=== PATIENT | male | born 1940 | race Caucasian/White ===

== ENCOUNTER 2017-06-29 21:33 | Inpatient (IN) | payer MEDICARE ==
[2017-06-29 22:25] LABS: #Basophils 0.1 thou/uL (0.0-0.2); #Eosinphils 0.2 thou/uL (0.0-0.7); #Monocytes 0.8 thou/uL (0.11-0.59); #Neutrophils 5.5 thou/uL (1.40-6.50); %Basophils 0.8 % (0.0-1.0); %Eosinophils 2.6 % (0.0-10.0); %Lymphocytes 23.4 % (21.0-51.0); Hematocrit 43.8 % (42.0-52.0); Mean Platelet Volume 7.4 fL (7.4-10.4); Red Blood Cell (RBC) Count 4.55 mill/uL (4.70-6.10); White Blood Cell (WBC) Count 8.5 thou/uL (4.8-10.8)
[2017-06-29 22:32] LABS: Prothrombin Time 28.5 SEC (12.0-14.7)
[2017-06-29 22:45] LABS: ALT (SGPT) 47 U/L (8-55); AST (SGOT) 74 U/L (5-34); Alkaline Phosphatase 46 U/L (40-150); Anion Gap 12 mmol/L (10-20); BUN (Urea Nitrogen) 31 mg/dL (8.4-25.7); Bilirubin, Total 0.6 mg/dL (0.2-1.2); Calc. Creatinine Clearance 0 mL/min (70-130); Calcium 9.9 mg/dL (7.8-10.44); Carbon Dioxide 30 mmol/L (23-31); Chloride 104 mmol/L (98-107); Estimated GFR-MDRD 42; Globulin 3.3 g/dL (2.4-3.5); Protein, Total 7.5 g/dL (5.8-8.1)
[2017-06-29 22:52] LABS: Troponin I Less than 0.010 ng/mL (< 0.028)
--- NOTE | 2017-06-30 00:04 | RAD ---
TWO AP VIEWS CHEST: 06/29/17 HISTORY: Chest pain. Patient has been having back and chest pain for five days. Two upright views portable of chest is obtained. Comparison made to previous exam on 04/17/04. AP view chest demonstrates an intracardiac pacing device. The lungs are well aerated. No evidence of active intrathoracic disease seen. No evidence of effusions, pneumonia or pneumothorax seen. IMPRESSION: Unremarkable AP view chest. POS: [facility]
[2017-06-30] MEDS ORDERED: Morphine 4 MG/ML Carpuject ONE ×2 (00:35→02:37)
[2017-06-30 00:54] LABS: Troponin I Less than 0.010 ng/mL (< 0.028)
[2017-06-30 01:33] LABS: CK (CPK) 128 U/L (30-200)
[2017-06-30 01:46] LABS: Lipase 5275 U/L (8-78)
[2017-06-30] MEDS ORDERED: Phytonadione 10 MG/ML AMP SLOW IVP SCH (04:45)
[2017-06-30] MEDS ORDERED: HUMAN PROTHROMBIN COMPLX IV SCH (04:45)
[2017-06-30] MEDS ORDERED: ADMIXTURE FEE IV SCH (04:45)
[2017-06-30] MEDS ORDERED: Acetaminophen 325 MG TAB PO PRN (06:14)
[2017-06-30] MEDS ORDERED: Ondansetron ODT 4 MG TAB SL PRN (06:14)
[2017-06-30] MEDS ORDERED: Ondansetron HCl/PF 4 MG/2 ML Vial IVP PRN (06:14)
--- NOTE | 2017-06-30 08:15 | CT ---
PRELIMINARY REPORT/[facility]/EMERGENCY AFTER HOURS PROCEDURE: EXAM: CT Angiography Chest With Intravenous Contrast CLINICAL HISTORY: 77 years old, male; Pain; Chest pain; Abdominal pain; Epigastric; Prior surgery; Patient HX: Pt with 1 hr of left sided, nonradiating chest pressure and pain that began while watching tv. HX of dm typ e 2, a-fib on coumadin and therapeutic at 3 and mitral regurg. ; Additional info: only 60 ml of iv contrast used, due to low gfr TECHNIQUE: Axial computed tomographic angiography images of the chest with intravenous contrast using pulmonary embolism protocol. Coronal and sagittal reformatted images were created and reviewed. CONTRAST: 60 mL of ISOVUE 370 administered intravenously. COMPARISON: No relevant prior studies available. FINDINGS: Pulmonary arteries: Suboptimal are adequate contrast opacification of the pulmonary arteries. No tegan dence of PE. Aorta: Aorta is normal. No aneurysm or acute aortic syndrome. Lungs: Unremarkable. No mass. No consolidation. Pleural space: Unremarkable. No significant effusion. No pneumothorax. Heart: Unremarkable. No cardiomegaly. No significant pericardial effusion. No evidence of RV dysfunc tion. Bones/joints: No acute fracture. No dislocation. Soft tissues: Unremarkable. Lymph nodes: Unremarkable. No enlarged lymph nodes. IMPRESSION: Aorta is normal. No aneurysm or acute aortic syndrome. EXAM: CT Angiography Abdomen With Intravenous Contrast EXAM DATE/TIME: Exam ordered 06/30/2017 1:41 AM CLINICAL HISTORY: 77 years old, male; Pain; Chest pain; Abdominal pain; Epigastric; Prior surgery; Patient HX: Pt with 1 hr of left sided, nonradiating chest pressure and pain that began while watching tv. HX of dm typ e 2, a-fib on coumadin and therapeutic at 3 and mitral regurg. ; Additional info: only 60 ml of iv cont rast used, due to low gfr TECHNIQUE: Axial computed tomographic angiography images of the abdomen with intravenous contrast. Coronal and sagittal reformatted images were created and reviewed. CONTRAST: 60 mL of ISOVUE 370 administered intravenously. COMPARISON: No relevant prior studies available. FINDINGS: Lower thorax: No acute findings. Aorta: No acute findings. No abdominal aortic aneurysm. No dissection. Celiac trunk and mesenteric arteries: No acute findings. No occlusion or significant stenosis. Renal arteries: No acute findings. No occlusion or significant stenosis. Liver: Unremarkable. No mass. Gallbladder and bile ducts: No biliary ductal dilatation or choledocholithiasis. Gallbladder is dist ended. No evidence of cholelithiasis. Mild pericholecystic fluid. No gallbladder wall thickening or pericholecystic inflammation. Pancreas: Annular pancreas. Diffuse inflammation of the head, neck, and proximal body of the pancrea s with small amount of surrounding fluid, consistent with acute pancreatitis. No ductal dilation. Spleen: Unremarkable. No splenomegaly. Adrenals: Unremarkable. No mass. Kidneys and ureters: Small incidental left renal cyst. No hydronephrosis. Stomach and bowel: No bowel thickening or intestinal obstruction. Appendix: Visualized portion of the appendix is normal. Intraperitoneal space: Unremarkable. No significant fluid collection. No free air. Bones/joints: No acute fracture. No dislocation. Soft tissues: Unremarkable. No mass. Lymph nodes: Unremarkable. No enlarged lymph nodes. IMPRESSION: 1. Annular pancreas. Acute pancreatitis. 2. Gallbladder is distended and there is mild pericholecystic fluid which can be findings of acute c holecystitis; however, there is no wall thickening or pericholecystic inflammation which are more co nvincing findings of cholecystitis. Presence of pericholecystic fluid may be related to pancreatitis . Thank you for allowing us to participate in the care of your patient. Dictated and Authenticated by: Dakota Desai MD 06/30/2017 1:59 AM Central Time ([place] \T\ [place]) FINAL REPORT CT ANGIOGRAM OF THE CHEST WITH IV CONTRAST AND 3D POSTPROCESSING CT ANGIOGRAM OF THE ABDOMEN WITH IV CONTRAST AND 3D POSTPROCESSING: Date: 06/30/17 FINDINGS/IMPRESSION: I agree with the preliminary report given by Dr. Dakota Desai of [facility]. POS: [facility]
--- NOTE | 2017-06-30 08:22 | ULT ---
PRELIMINARY REPORT/[facility]/EMERGENCY AFTER HOURS PROCEDURE: EXAM: US Abdomen Limited, Right Upper Quadrant EXAM DATE/TIME: Exam ordered 06/30/2017 2:49 AM CLINICAL HISTORY: 77 years old, male; Pain and signs and symptoms; Nausea; Abdominal pain; Epigastric TECHNIQUE: Real-time ultrasound of the right upper quadrant with image documentation. COMPARISON: No relevant prior studies available. FINDINGS: Liver: No intrahepatic biliary ductal dilatation. Gallbladder: Gallbladder is distended. Diffuse gallbladder wall thickening. Gallbladder wall edema. Pericholecystic fluid. Sonographic Chilel's sign unreliable due to patient medication. No perceptibl e cholelithiasis. Common bile duct: Common bile duct measures up to 9 mm in caliber which can be normal in a patient t his age; however, mild biliary ductal dilatation not excluded. No perceptible choledocholithiasis. Pancreas: Unremarkable as visualized. Right kidney: Unremarkable. No stones. No solid mass. No hydronephrosis. IMPRESSION: 1. Distended gallbladder with diffuse gallbladder wall thickening, gallbladder wall edema, perichole cystic fluid, consistent with acute cholecystitis. 2. Common bile duct measures up to 9 mm in caliber which can be normal in a patient this age; howeve r, mild biliary ductal dilatation not excluded. If there is clinical concern for distal CBD obstruct ion, recommend CT abdomen/pelvis with contrast. Thank you for allowing us to participate in the care of your patient. Dictated and Authenticated by: Dakota Desai MD 06/30/2017 3:27 AM Central Time ([place] \T\ [place]) FINAL REPORT GALLBLADDER ULTRASOUND: Date: 06/30/17 FINDINGS/IMPRESSION: Images of the gallbladder show evidence of gallbladder wall thickening and pericholecystic edema. I am in agreement with the preliminary report issued by Krista. POS: [facility]
[2017-06-30] MEDS ORDERED: Dextrose 50% Abboject 50 ML SYRINGE IVP PRN (09:28)
[2017-06-30] MEDS ORDERED: Dextrose 5% in Water 1,000 ML IV PRN (09:28)
[2017-06-30] MEDS ORDERED: Digoxin 0.25 MG TAB PO SCH (09:30)
[2017-06-30] MEDS ORDERED: Morphine 4 MG/ML Carpuject IVP PRN (10:07)
[2017-06-30] MEDS ORDERED: Acetaminophen 1,000 MG in Premix Bag 1 BAG IVPB PRN (10:08)
[2017-06-30] MEDS: Sodium Chloride 0.9% 1,000 ML IV SCH ×2 (10:24→18:08)
--- NOTE | 2017-06-30 10:29 | HP ---
HISTORY OF PRESENT ILLNESS: This is a 77-year-old male who presents with a history of severe upper abdominal pain for the last several hours. Actually he started having some vague upper abdominal pa in a few days ago, loss of appetite became more severe, 8/10 sharp pain across his upper abdomen la st night, extended up into his low chest. He was seen in the emergency department where an aortic d issection protocol CT revealed inflammatory changes to the gallbladder. He then has had now ultraso und showing pericholecystic fluid and thickened gallbladder wall. He has also been found to have pa ncreatitis with pericholecystic fluid. There are no gallstones. The patient denies previous known history of gallstones, jaundice, pancreatitis. He has 1-2 glasses of red wine a week. He does not drink daily. PAST MEDICAL HISTORY: Includes chronic atrial fibrillation on digoxin and Coumadin, hypertension, c oronary artery disease, diabetes mellitus type 2, dyslipidemia. MEDICINES TAKEN DAILY: Digoxin, vitamins, metoprolol, statin, Actos, Januvia, Coumadin. ALLERGIES TO MEDICINES: No known drug allergies. SOCIAL HISTORY: Again, 1-2 alcoholic drinks a week, not daily. No other drugs. No smoking. REVIEW OF SYSTEMS: Otherwise, negative. PHYSICAL EXAMINATION: VITAL SIGNS: Blood pressure 134/55, pulse 84, respirations 14. He is afebrile. HEENT: Sclerae are anicteric. Oropharynx clear. NECK: No lymphadenopathy. CHEST: Clear. HEART: Regular rate, irregular rhythm. ABDOMEN: His abdomen is soft, tender across the upper abdomen with no guarding or rebound. No abdo ashwin or inguinal hernias. LABORATORY AND X-RAY FINDINGS: White blood cell count is 8, hemoglobin is 14, INR last night 2.6. Sodium 141, potassium 4.5, creatinine 1.61, bilirubin normal at 0.6, AST slightly elevated at 74, li pase elevated at 5275, alkaline phos is normal. CT scan of the abdomen, and pelvis dissection nahid col reveals acute pancreatitis. Ultrasound shows pericholecystic fluid and thickened gallbladder wa ll. ASSESSMENT: Definite pancreatitis, unsure of etiology given lack of significant alcohol intake and no stones see on ultrasound. Question whether just stones are not seen. I think that the inflammat ory changes to the gallbladder and the pericholecystic fluid are related to the pancreatitis, not fr om an acute cholecystitis. Treat nonoperatively for now, IV fluid resuscitation, let his pancreatit is improve then we will decide whether to perform cholecystectomy. We will continue metoprolol and digoxin, but hold Coumadin for now.
[2017-06-30 11:22] VITALS: BMI 20.6
--- NOTE | 2017-06-30 11:27 | HP ---
REASON FOR ADMISSION: Chest pain. HISTORY OF PRESENT ILLNESS: This is a pleasant elderly gentleman with a history of mitral valve ins ufficiency and pacemaker implantation in the past, presents after he was watching a game on TV, he b tremayne having retrosternal chest pressure with no associated nausea, vomiting or diaphoresis. Shortly after that, began having right upper quadrant pain that went all across the stomach. For this reas on, he presented to the hospital where TN was ruled out with serial cardiac enzymes; however, he was found to have elevated lipase. Therefore, admitted to the hospital for further evaluation and thanh tment. He denies any history of coronary artery disease. The patient is very active and appears to be hemo dynamically stable, in no acute distress. PAST MEDICAL HISTORY: 1. He has mitral valve insufficiency. 2. History of atrial fibrillation. 3. History of hypertension. 4. Diabetes. 5. Hyperlipidemia. ALLERGIES: None. MEDICATIONS: 1. Zetia 10 mg every day. 2. Atorvastatin 40 mg every day. 3. Metoprolol ER 50 mg every day. 4. Digoxin 250 mcg every day. 5. Coumadin 5 mg every day. 6. Fenofibrate 135 mg every day. 7. Nitro 0.4 sublingual p.r.n. chest pain. 8. Xyzal 5 mg every day. 9. Fish oil every day. 10. Saw palmetto every day. 11. Magnesium 250 mg every day. 12. Nasonex p.r.n. 13. Januvia 100 mg every day. 14. Actos 15 mg every day. SOCIAL HISTORY: There is no tobacco or alcohol use. FAMILY HISTORY: Noncontributory. REVIEW OF SYSTEMS: General: Admits to no weight gain, weight loss, weakness, fatigue, fever or chi lls. HEENT: No diplopia, amaurosis fugax, tinnitus, sore throat or hoarseness. Cardiovascular: See history of present illness. Pulmonary: No PE, cough, or hemoptysis. Gastrointestinal: See history of present illness. Genitourinary: No dysuria, nocturia, oliguria o r polyuria. Endocrine: No polyphagia, polydipsia or heat or cold intolerance. Musculoskeletal: A dmits to arthralgias in the past. No lupus or myopathy. Neurologic: No history of TIA or seizure. All systems are negative. PHYSICAL EXAMINATION: GENERAL: Pleasant gentleman who appears to be in no acute distress. His family is at bedside. VITAL SIGNS: His blood pressure is 135/56, pulse 70, respirations 20, he is afebrile. NECK: Supple with no increased JVP or carotid bruit. Carotid had good upstroke, no thyromegaly. COR: Regular rate and rhythm. No murmur, S3. CHEST: Symmetrical. Clear to auscultation and percussion. EXTREMITIES: No edema or cyanosis. Palpable pedal pulses. SKIN: There is no evidence of ulcers, lesion, or rash. NEUROLOGIC: He is awake, alert, and oriented to person, place, and time. LABORATORY DATA AND IMAGING: Showed white blood cells of 8.5. His H\T\H is 14.3 and 43.8. His martha telet count is 170. His D-dimer was less than 0.27. His INR was 2.6. His lipase was 5275. His BU N was 31. His creatinine was 1.61. His gallbladder ultrasound is pending at time of dictation; how ever, there was some concern for some cholecystitis. ASSESSMENT: 1. Noncardiac chest pain. 2. History of valvular insufficiency. 3. History of atrial fibrillation. 4. History of pacemaker implantation. 5. Hypertension. 6. Hyperlipidemia. 7. Acute pancreatitis and acute cholecystitis. PLAN: 1. We will start IV fluids and normal saline at 100 mL an hour. 2. We will only give digoxin, metoprolol. 3. We will check a.c. and at bedtime blood sugars and use low dose regular sliding insulin per prot ocol. 4. We will check a PT/INR in the morning. 5. We will consult Dr. Delgado for cardiac clearance for his gallbladder removal. Kentrell Vogel PA-C dictating for Dr. Jd Arroyo.
[2017-06-30] MEDS ORDERED: ISOVUE-370 76%-LOCM 1 ML ONE (13:24)
--- NOTE | 2017-06-30 18:35 | CON ---
DATE OF CONSULTATION: 06/30/2017 REASON FOR CONSULTATION: Preop clearance. HISTORY OF PRESENT ILLNESS: Mr. Mitchell is a very pleasant 77-year-old gentleman with a history of atrial fibrillation in addition to flbhrycp-[id number]-cfddpd mitral regurgitation. He recently presented with gallbladder pancreatitis. He denies chest pain or pressure. His peak lipase was 50-75 mL. PAST MEDICAL HISTORY: As above including diabetes mellitus; hypertension; sick sinus syndrome; stat us post pacemaker placement; chronic atrial fibrillation, on Coumadin therapy. ALLERGIES: None. HOME MEDICATIONS: Include Xyzal, atorvastatin, Zetia, metformin, pioglitazone, magnesium, Trilipix , Januvia, digoxin, and Toprol. REVIEW OF SYSTEMS: A 10-point review of systems is reviewed and as above, otherwise negative. PHYSICAL EXAMINATION: GENERAL: Patient is a pleasant male who is in no acute distress. The patient appears his stated ag e. VITAL SIGNS: Blood pressure 114/67, pulse 69, temperature 98.5. NEUROLOGIC: The patient is alert and oriented times 3 with no focal neurologic deficits. HEENT: Sclerae without icterus. Mouth has moist mucous membranes with normal pallor. NECK: No JVD. Carotid upstroke brisk. No bruits bilaterally. LUNGS: Clear to auscultation with unlabored respirations. BACK: No scoliosis or kyphosis. CARDIAC: Regular rate and rhythm with normal S1 and S2. No S3 or S4 noted. No significant rubs, murmurs, thrills, or gallops noted throughout the precordium. PMI is not displ aced. There is no parasternal heave. ABDOMEN: Soft, nontender, nondistended. No peritoneal signs present. No hepatosplenomegaly. No abnormal striae. EXTREMITIES: 2+ femoral and 2+ dorsalis pedis pulses. No cyanosis, clubbing, or edema. SKIN: No gross abnormalities. PERTINENT LABS: As above, including a hemoglobin of 14.3, creatinine 1.61. IMPRESSION: 1. Preop clearance. 2. Tenyrwnd-yn-pxpqff mitral regurgitation. 3. Atrial fibrillation. RECOMMENDATIONS: Mr. Mitchell has no current symptoms suggesting angina. Given his current diagnos is of gallstone pancreatitis with a markedly elevated lipase and a dilated common bile duct, we woul d proceed with surgery. Last echo dated 07/21/2016 with LVEF 50%-55% and [id number] MRKavita Rashid jasso, I have no further recommendations.
[2017-07-01] MEDS: Sodium Chloride 0.9% 1,000 ML IV SCH ×4 (02:22→23:44)
[2017-07-01 05:20] LABS: #Lymphocytes 1.4 thou/uL (1.20-3.40); #Neutrophils 11.4 thou/uL (1.40-6.50); %Basophils 0.1 % (0.0-1.0); %Eosinophils 0.3 % (0.0-10.0); %Lymphocytes 10.4 % (21.0-51.0); %Monocytes 7.2 % (0.0-10.0); Hematocrit 42.5 % (42.0-52.0); Mean Platelet Volume 7.9 fL (7.4-10.4); Red Blood Cell (RBC) Count 4.25 mill/uL (4.70-6.10); White Blood Cell (WBC) Count 13.9 thou/uL (4.8-10.8)
[2017-07-01 05:34] LABS: Prothrombin Time 16.8 SEC (12.0-14.7)
[2017-07-01 05:50] LABS: ALT (SGPT) 100 U/L (8-55); AST (SGOT) 81 U/L (5-34); Alkaline Phosphatase 45 U/L (40-150); Anion Gap 12 mmol/L (10-20); BUN (Urea Nitrogen) 25 mg/dL (8.4-25.7); Bilirubin, Total 1.5 mg/dL (0.2-1.2); Calc. Creatinine Clearance 52 mL/min (70-130); Calcium 9.3 mg/dL (7.8-10.44); Carbon Dioxide 23 mmol/L (23-31); Chloride 107 mmol/L (98-107); Estimated GFR-MDRD 55; Globulin 3.2 g/dL (2.4-3.5); Lipase 458 U/L (8-78); Protein, Total 7.1 g/dL (5.8-8.1)
[2017-07-01] MEDS: Digoxin 0.25 MG TAB PO SCH (08:02)
--- NOTE | 2017-07-01 08:56 | PRG ---
DATE OF SERVICE: 07/01/2017 SUBJECTIVE: Mr. Mitchell has continued to complain of abdominal discomfort. His lipase is markedly improved on 06/29/2017. OBJECTIVE: VITAL SIGNS: Blood pressure 109/60, pulse 77, temperature 98.4. LUNGS: Clear to auscultation. CARDIAC: Regular rate and rhythm. ABDOMEN: Positive tenderness to palpation. EXTREMITIES: No edema. IMPRESSION: 1. Atrial fibrillation. 2. Moderate to severe mitral regurgitation. 3. Gallstone pancreatitis. RECOMMENDATIONS: Mr. Mitchell's cardiovascular status is stable. The patient has no current sympto ms suggesting angina. I would proceed with surgery. He is currently on digoxin in addition to meto prolol. Patient's last echo dated on 07/2016 with LVEF 50%-55% and moderate to severe MR.
[2017-07-01] MEDS ORDERED: Digoxin 0.25 MG TAB PO SCH (09:00)
[2017-07-01] MEDS ORDERED: Ketorolac Tromethamine 30 MG/ML VIAL ONE (09:53)
[2017-07-01] MEDS ORDERED: Lidocaine 2% PF 10 ML AMP (For Epidural Use) ONE (09:53)
[2017-07-01] MEDS ORDERED: Glycopyrrolate 0.2 MG/ML 5 ML SYRINGE ONE (09:53)
[2017-07-01] MEDS ORDERED: Dexamethasone 20 MG/5 ML VIAL ONE (09:53)
[2017-07-01] MEDS ORDERED: Ondansetron HCl/PF 4 MG/2 ML Vial ONE (09:53)
[2017-07-01] MEDS ORDERED: PHENYLEPHRINE-NS 100 MCG/ML 10 ML SYRINGE ONE (09:53)
[2017-07-01] MEDS ORDERED: Propofol 200 MG/20 ML VIAL ONE (09:53)
--- NOTE | 2017-07-01 16:29 | NM ---
HEPATOBILIARY SCAN: 07/01/17 HISTORY: Abdominal pain with gallbladder findings consistent with acute cholecystitis. RADIOPHARMACEUTICAL: 4.6 millicuries technetium 99m-Mebrofenin injected intravenously. CCK-8: 1.5 mcg slowly infused over 30 minutes. This was done a half an hour before the scan and one hour in to the scan to evaluate gallbladder contractility. FINDINGS: There is good tracer extraction by the liver with prompt excretion of the biliary tract and normal t racer excretion into the biliary tract and small bowel loops and normal filling of the gallbladder. The calculated gallbladder ejection fraction following CCK-8 administration measures 69%. IMPRESSION: Normal exam. POS: [facility]
--- NOTE | 2017-07-01 17:46 | PRG ---
DATE OF SERVICE: 07/01/2017 SUBJECTIVE: Mr. Mitchell's pain is improved. He is thirsty. No nausea. OBJECTIVE: VITAL SIGNS: Afebrile. Vital signs are stable. ABDOMEN: Soft, minimally tender in the upper abdomen, improved from yesterday. HIDA scan shows gallbladder uptake with normal ejection fraction of 69%. ASSESSMENT: Pancreatitis of uncertain etiology without cholecystitis. The gallbladder wall thicken ed changes on CT and ultrasound are likely related to the pancreatitis. Etiology of the pancreatiti s is unknown. Discussed with Dr. Sarbjit Elliott, Gastroenterology with his dilated common bile duct, no mass in the head of his pancreas and lack of any other source; options are advance diet, discharge home and observation versus a potential prophylactic cholecystectomy. He could have microlithiasis, it is not showing up on his ultrasound. Discussed with the patient including risks, benefits, alte rnatives to surgery. He does elect to proceed with surgery now. We will perform cholangiogram at th e time of surgery to rule out bile duct obstruction.
[2017-07-02 06:11] LABS: ALT (SGPT) 69 U/L (8-55); AST (SGOT) 65 U/L (5-34); Alkaline Phosphatase 44 U/L (40-150); Anion Gap 6 mmol/L (10-20); BUN (Urea Nitrogen) 19 mg/dL (8.4-25.7); Bilirubin, Direct 0.6 mg/dL (0.1-0.3); Bilirubin, Total 1.1 mg/dL (0.2-1.2); Calc. Creatinine Clearance 74 mL/min (70-130); Calcium 8.3 mg/dL (7.8-10.44); Carbon Dioxide 25 mmol/L (23-31); Chloride 110 mmol/L (98-107); Estimated GFR-MDRD 82; Lipase 104 U/L (8-78); Protein, Total 5.5 g/dL (5.8-8.1)
[2017-07-02 06:21] LABS: #Lymphocytes 0.9 thou/uL (1.20-3.40); #Monocytes 0.7 thou/uL (0.11-0.59); #Neutrophils 8.2 thou/uL (1.40-6.50); %Basophils 0.1 % (0.0-1.0); %Eosinophils 0.2 % (0.0-10.0); %Lymphocytes 9.2 % (21.0-51.0); %Monocytes 7.4 % (0.0-10.0); Hematocrit 35.2 % (42.0-52.0); Mean Platelet Volume 7.9 fL (7.4-10.4); Red Blood Cell (RBC) Count 3.59 mill/uL (4.70-6.10); White Blood Cell (WBC) Count 9.8 thou/uL (4.8-10.8)
[2017-07-02] MEDS: Digoxin 0.25 MG TAB PO SCH (08:05)
[2017-07-02] MEDS: Sodium Chloride 0.9% 1,000 ML IV SCH ×2 (09:08→13:30)
[2017-07-02] MEDS ORDERED: Sodium Chloride 0.9% 0 ML ONE (09:11)
[2017-07-02] MEDS ORDERED: Iothalamate Meglumine 60% 50 ML VIAL FS ONE (09:16)
[2017-07-02] MEDS ORDERED: Lidocaine 2% w/Epinephrine 1:200K 20 ML VIAL ONE (09:16)
[2017-07-02] MEDS ORDERED: Bupivacaine 0.25% HCL 30 ML VIAL ONE (09:16)
[2017-07-02] MEDS ORDERED: Fentanyl 100 MCG/2 ML VIAL ONE (09:46)
[2017-07-02] MEDS ORDERED: Promethazine HCl 25 MG/ML VIAL IM PRN (10:55)
[2017-07-02] MEDS ORDERED: HYDROmorphone 2 MG/ML VIAL SLOW IVP PRN (10:55)
[2017-07-02] MEDS ORDERED: Promethazine HCl 25 MG/ML VIAL SLOW IVP PRN (10:55)
[2017-07-02] MEDS ORDERED: Morphine Sulfate 2 MG/ML SYRINGE SLOW IVP PRN (10:55)
[2017-07-02] MEDS ORDERED: Ondansetron HCl/PF 4 MG/2 ML Vial IVP PRN (10:55)
[2017-07-02] MEDS ORDERED: HYDROcodone/Acetaminophen 10/325 mg Tablet PO PRN (11:38)
--- NOTE | 2017-07-02 13:19 | OP ---
DATE OF PROCEDURE: 07/02/2017 PREOPERATIVE DIAGNOSES: Pancreatitis and cholecystitis, idiopathic. PROCEDURE: Laparoscopic cholecystectomy, intraoperative cholangiogram. SURGEON: Naresh Daugherty M.D. ANESTHESIA: General. ESTIMATED BLOOD LOSS: Minimal. COMPLICATIONS: None. SPECIMEN: Gallbladder. 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 The distal pancreas is drained in a circular pa ttern around the head of the pancreas. The proximal pancreas has drained right off the pancreas div isum; however, there was no evidence of distal common bile duct obstruction or stone. TECHNIQUE: The patient taken to the operating room and laid supine on the operating room table. Af ter general anesthetic was obtained, the abdomen was shaved, prepped and draped in a sterile fashion . Curved incision made below the umbilicus. Cautery was used to dissect down to and score the fasc ia. Abdominal cavity was entered bluntly using a Melva clamp. Holding stitch of PDS was on each si de of the fascia. Staton trocar was placed. High-flow pneumoperitoneum was obtained. An upper mid line 5-mm port and 2 right upper quadrant 5-mm ports were placed under direct camera visualization. The gallbladder was retracted gallbladder fossa. The peritoneum was opened anteriorly and posterio rly. Critical view triangle was seen showing only the cystic duct and cystic artery branching from medial to lateral, no other branching structures. A clip was placed distally on the cystic duct. A small ductotomy was made just proximal to that. Cholangiocatheter was brought in through a separat e stab incision and a cholangiogram was performed which showed good contrast flow into the duodenum without obstruction. There does appear to be some aberrant pancreatic drainage. The drainage patte rn to the pancreas does appear to be aberrant as can be seen on the cholangiogram; however, there wa s no evidence of distal obstruction. Cholangiocatheter was removed. Two clips were placed proximal ly on the cystic duct, it was cut using laparoscopic scissors. Cystic artery was taken using two cl ips proximally, one clip distally, and cut using laparoscopic scissors. The gallbladder was dissect ed out of the gallbladder fossa using cautery. Gallbladder was placed in an Endocatch bag and broug ht out through the Staton. There is no bleeding in the liver bed. Lucille and a bleeding starch wer e placed there. The right upper quadrant was irrigated using sterile solution. All port sites were infiltrated using local anesthetic. All ports were removed under camera visualization. Pneumoperi toneum was let down. PDS was used to close the fascial defect below the umbilicus. All incisions w ere irrigated and closed using 4-0 Monocryl and Dermabond. The patient was en route to recovery in stable condition. All instrument counts, needle counts, and lap counts were correct.
--- NOTE | 2017-07-02 14:18 | RAD ---
INTRAOPERATIVE CHOLANGIOGRAM: Date: 07/02/17 HISTORY: Status post cholecystectomy. COMPARISON: None. EXPOSURE: 3.88 mGy*cm\S\2. 23 seconds. FINDINGS: Two fluoroscopic views demonstrate cannulation of the biliary system via the cystic duct. The common bile duct appears to have a normal caliber and tapers into what appears to be a duct within the hea d of the pancreas. This duct within the head of the pancreas likely represents a main pancreatic jim t. There appears to be a circular pancreatic duct likely representing the accessory duct. There is a mildly prominent pancreatic duct in the body of the pancreas. Small tributaries off the pancreatic duct are noted. IMPRESSION: Annular pancreas. There is significant tapering of the distal aspect of the main pancreatic duct ivan r the ampulla of Vater. There is also tapering of the common bile duct as it enters the main pancrea tic duct. POS: [facility]
[2017-07-02] MEDS: Insulin Regular 300 UNITS/3 ML VIAL SC PRN (21:53)
[2017-07-03 04:58] LABS: #Lymphocytes 0.5 thou/uL (1.20-3.40); #Monocytes 0.4 thou/uL (0.11-0.59); #Neutrophils 6.8 thou/uL (1.40-6.50); %Eosinophils 0.1 % (0.0-10.0); %Lymphocytes 6.6 % (21.0-51.0); %Monocytes 5.7 % (0.0-10.0); Hematocrit 34.6 % (42.0-52.0); Prothrombin Time 16.9 SEC (12.0-14.7); Red Blood Cell (RBC) Count 3.51 mill/uL (4.70-6.10); White Blood Cell (WBC) Count 7.7 thou/uL (4.8-10.8)
[2017-07-03] MEDS: Sodium Chloride 0.9% 1,000 ML IV SCH ×2 (05:02→07:06)
[2017-07-03 05:11] LABS: ALT (SGPT) 234 U/L (8-55); AST (SGOT) 257 U/L (5-34); Alkaline Phosphatase 113 U/L (40-150); Anion Gap 10 mmol/L (10-20); BUN (Urea Nitrogen) 25 mg/dL (8.4-25.7); Bilirubin, Total 2.6 mg/dL (0.2-1.2); Calc. Creatinine Clearance 66 mL/min (70-130); Calcium 8.4 mg/dL (7.8-10.44); Carbon Dioxide 23 mmol/L (23-31); Chloride 108 mmol/L (98-107); Estimated GFR-MDRD 72; Globulin 2.8 g/dL (2.4-3.5); Lipase 468 U/L (8-78); Protein, Total 5.7 g/dL (5.8-8.1)
[2017-07-03] MEDS: Insulin Regular 300 UNITS/3 ML VIAL SC PRN ×3 (07:08→21:02)
[2017-07-03] MEDS: Digoxin 0.25 MG TAB PO SCH (08:13)
[2017-07-03] MEDS ORDERED: Sodium Chloride 0.9% 1,000 ML IV SCH (09:07)
--- NOTE | 2017-07-03 09:12 | PRG ---
DATE OF SERVICE: 07/03/2017 SUBJECTIVE: Mr. Mitchell is complaining of mild incisional pain, not significant. OBJECTIVE: VITAL SIGNS: He is afebrile. Vital signs are stable. ABDOMEN: Soft and appropriately tender. His wounds are healing well. LABORATORY DATA: Bilirubin today was up to 2.6. His AST and ALT were elevated, and his lipase was up to 468. ASSESSMENT: Postoperative day #1 cholecystectomy with cholangiogram showing pancreatic divisum, a p ancreatic anatomy, but no obstructing stone. I suspect his liver function tests and lipase were lolly vated secondary to this cholangiogram, which filled his pancreatic system more than the usual. PLAN: He certainly is clinically improved, could be discharged today, and restart his Coumadin ozzy banuelos, could do some followup liver function tests in the office this coming week. We will discuss wi th the patient.
--- NOTE | 2017-07-03 12:22 | ADD-PRG ---
DATE OF SERVICE: 07/03/2017 Mr. Mitchell's bilirubin is up to 2.6 today and his lipase bumped slightly to 468. Given his mild p eriumbilical pain and the fact that his liver tests bumped slightly, we will keep him today. We gumaro l still advance to GI soft diet for lunch and see how he does. Recheck the liver function tests briana nikolasow. I suspect his liver function tests are secondary to my cholangiogram, which did reflux into the pancreatic duct and that occurred because of his aberrant anatomy. So, likely discharge home to [place] if trending down.
[2017-07-03] MEDS: HYDROcodone/Acetaminophen 10/325 mg Tablet PO PRN (16:49)
[2017-07-03] MEDS ORDERED: Warfarin Sodium 5 MG TAB PO SCH ×2 (17:00)
[2017-07-03] MEDS ORDERED: Ezetimibe 10 MG TAB PO SCH (21:00)
[2017-07-03] MEDS ORDERED: Atorvastatin Calcium 40 MG TAB PO SCH (21:00)
[2017-07-03] MEDS ORDERED: Fenofibrate Nanocrystallized 145 MG TAB PO SCH (21:00)
[2017-07-04] MEDS: HYDROcodone/Acetaminophen 10/325 mg Tablet PO PRN ×2 (00:18→10:20)
[2017-07-04 05:36] LABS: #Basophils 0.1 thou/uL (0.0-0.2); #Eosinphils 0.2 thou/uL (0.0-0.7); #Lymphocytes 0.9 thou/uL (1.20-3.40); #Monocytes 0.7 thou/uL (0.11-0.59); #Neutrophils 6.1 thou/uL (1.40-6.50); %Basophils 0.6 % (0.0-1.0); %Eosinophils 2.3 % (0.0-10.0); %Lymphocytes 11.3 % (21.0-51.0); %Monocytes 8.4 % (0.0-10.0); Hematocrit 32.9 % (42.0-52.0); Mean Platelet Volume 7.6 fL (7.4-10.4); Red Blood Cell (RBC) Count 3.35 mill/uL (4.70-6.10); White Blood Cell (WBC) Count 7.9 thou/uL (4.8-10.8)
[2017-07-04 05:55] LABS: Anion Gap 8 mmol/L (10-20); BUN (Urea Nitrogen) 25 mg/dL (8.4-25.7); Calc. Creatinine Clearance 76 mL/min (70-130); Carbon Dioxide 24 mmol/L (23-31); Chloride 109 mmol/L (98-107); Estimated GFR-MDRD 85
[2017-07-04 07:36] VITALS: BP 128/68; TEMP 97.7
[2017-07-04] MEDS: Digoxin 0.25 MG TAB PO SCH (07:45)
[2017-07-04 07:49] LABS: ALT (SGPT) 240 U/L (8-55); AST (SGOT) 228 U/L (5-34); Alkaline Phosphatase 127 U/L (40-150); Bilirubin, Direct 1.2 mg/dL (0.1-0.3); Bilirubin, Total 1.6 mg/dL (0.2-1.2); Lipase 614 U/L (8-78); Protein, Total 5.1 g/dL (5.8-8.1)
[2017-07-04] MEDS ORDERED: Pioglitazone HCl 15 MG TAB PO SCH (09:00)
[2017-07-04] MEDS ORDERED: Alogliptin Benzoate 25 MG TABLET PO SCH (09:00)
[2017-07-04] MEDS ORDERED: HumaLOG 300 UNITS/3 ML VIAL SC PRN (09:34)
[2017-07-04] MEDS ORDERED: Dextrose 50% Abboject 50 ML SYRINGE SLOW IVP PRN (09:34)
[2017-07-04] MEDS ORDERED: Dextrose 5% in Water 1,000 ML IV PRN (09:34)
--- NOTE | 2017-07-04 09:50 | PRG ---
DATE OF SERVICE: 07/04/2017 Mr. Mitchell is feeling better today. He tolerated the regular food without difficulty this morning . His bilirubin is trending down. His lipase is still elevated. On exam, his abdomen is soft. Hi s wounds are healing well. His vital signs are stable. He is discharged home to follow up with me in the office in 2 weeks. I already wrote prescriptions for Schofield and Zofran. He will call my offi ce if he has any issues.
[2017-07-04] MEDS ORDERED: Warfarin Sodium 7.5 MG TAB PO SCH (17:00)
--- NOTE | 2017-07-05 11:32 | DIS ---
CHIEF COMPLAINT: Chest pain on admission. History and physical have previously been dictated. I will resume from there. HOSPITAL COURSE: The patient's chest pain was felt to be noncardiac in nature and so he was placed in a medical bed where IV fluids and serial cardiac enzymes were performed. Dr. Delgado was asked to see the patient in consultation, as well for gallbladder removal, Dr. Daugherty was asked to see t he patient from a surgical aspect. Over the next 24 hours, the patient was alert, still complained of right upper quadrant pain radiating to his back. White count was slightly elevated, lipase came down significantly from admission to 458. HIDA scan was performed later that day which basically wa s fairly unremarkable. By 07/02/2017 he had a good night. Pain was remitting. Dr. Daugherty agreed to go to the operating room that day to remove the gallbladder. This was done on 07/02/2017 by lapa roscopic approach with intraoperative cholangiogram and of note, was severely aberrant drainage oscar alexsandra which may have contributed to the clinical presentation of gallbladder disease. The postop cour se was rough on this patient and he stayed 1 extra day to ensure that he did well. His incisions co ntinued to heal well. He was finally able to be discharged on 07/04/2017. DISCHARGE DIAGNOSES: 1. Pancreatitis. 2. Probable chronic cholecystitis as proven by pathological specimen. 3. Aberrant ductal pattern of the gallbladder. 4. Kde-xgieywf-wcoycgiki diabetes, stable. PLAN: He will be discharged home where continued close monitoring of his liver functions will be pe rformed and monitoring of his incisions. He is discharged in stable condition and will follow up [facility] Dr. Arroyo in 1 week. The time necessary to evaluate his chart, then reevaluate the patient, [facility] [employer] the patient extensive ly which involved 20 minutes itself with face to face time then dictation came to 30 minutes and he is discharged in stable condition and will follow up with Dr. Arroyo over the next week.
--- NOTE | 2017-07-09 16:46 | EKG ---
Test Reason : CHEST PAIN Blood Pressure : / mmHG Vent. Rate : 064 BPM Atrial Rate : 441 BPM P-R Int : 000 ms QRS Dur : 178 ms QT Int : 438 ms P-R-T Axes : 000 -77 089 degrees QTc Int : 451 ms Ventricular-paced rhythm Abnormal ECG Confirmed by LUL BELCHER, NANO ([id number]), news editor JUAN HALL ([id number]) on 07/09/2017 4:46:36 PM Referred By: Confirmed By:NANO MCCARTY MD
== END 2017-07-04 10:50 | disposition home or self-care (01) | DRG 419 ==
LOC: ERS 21:33 → SURG B 06-30 06:14
PROVIDERS: ADMIT Family Medicine; ATTEND Family Medicine
PROC: 0FT44ZZ Resection of Gallbladder, Percutaneous Endoscopic Approach (ICD-10-PCS; principal; 2017-07-02)
PROC: BF111ZZ Fluoroscopy of Biliary and Pancreatic Ducts using Low Osmolar Contrast (ICD-10-PCS; 2017-07-02)
DX: K85.10 Biliary acute pancreatitis without necrosis or infection (principal); I48.2 Chronic atrial fibrillation; E11.9 Type 2 diabetes mellitus without complications; K81.9 Cholecystitis, unspecified; I34.0 Nonrheumatic mitral (valve) insufficiency; I10 Essential (primary) hypertension; E78.5 Hyperlipidemia, unspecified; Z95.0 Presence of cardiac pacemaker
CPT/HCPCS: 36415; 36416; 47532; 71010; 71275; 76705; 78227; 80048; 80053; 80076; 82150; 82550; 82553; 83690; 83880; 84484; 85025; 85379; 85610; 85730; 88304; 93005; 94760; 96361; 96374; 96375; 96376; A4216; A9537; C9132; J0131; J0694; J1100; J1170; J1610; J1815; J1885; J2001; J2270; J2405; J2704; J3010; J3430; J7050; Q9961; S0020

== ENCOUNTER 2017-10-12 07:40 | Outpatient (CLI) | payer MEDICARE ==
[2017-10-12] MEDS ORDERED: Iopamidol 370 76% 100 ML VIAL ONE (13:09)
== END 2017-10-12 07:41 | disposition home or self-care (01) ==
LOC: BICCT 07:40
PROVIDERS: ATTEND Otolaryngology Plastic Surgery within the Head & Neck
DX: R22.1 Localized swelling, mass and lump, neck (principal); R59.9 Enlarged lymph nodes, unspecified
CPT/HCPCS: 70491

== ENCOUNTER 2017-11-03 08:27 | Outpatient (CLI) | payer MEDICARE ==
--- NOTE | 2017-11-03 13:11 | PET ---
PET CT HEAD AND NECK PET CT CHEST AND ABDOMEN AND PELVIS: Date: 11/03/17 CLINICAL HISTORY: Submandibular mass, head/neck cancer, right side neck mass. Reference made to CT neck dated 10/12/17 from [facility]. FINDINGS: There is abnormal hypermetabolic activity localizing to mass of the right submandibular region with S UV of approximately 7.9. Mass measures approximately 2.3 x 2.0 cm in axial dimensions. Symmetrically noted within each aspect of the oropharynx, there is hypermetabolic activity measuring approximately 4.4 SUV on the right and 3.7 SUV on the left. No underlying discernible mass is seen by noncontrast C T imaging. There is a generalized mild soft tissue prominence circumferentially seen within the oroph arynx. There is no hypermetabolic mass or adenopathy identified within the chest, abdomen, or pelvis. There is a mild degree of increased metabolic activity seen at the site of a small, fat-containing u mbilical hernia, which may be related to associated mild inflammatory change. IMPRESSION: 1. Hypermetabolic mass of right submandibular region indicating malignant lymph node. 2. Nonspecific symmetric hypermetabolic activity involving the oropharynx bilaterally without a disc ernible mass. Finding is nonspecific. Underlying occult malignancy versus infectious/inflammatory pro cesses are the primary considerations. Correlate with clinical history and direct visualization. POS: [facility]
== END 2017-11-03 08:28 | disposition home or self-care (01) ==
LOC: PET 08:27
PROVIDERS: ATTEND Internal Medicine Hematology & Oncology
DX: C44.321 Squamous cell carcinoma of skin of nose (principal); R22.1 Localized swelling, mass and lump, neck
CPT/HCPCS: 78815; A9552

== ENCOUNTER 2017-11-04 12:21 | Day surgery (SDC) | payer MEDICARE ==
[2017-11-03 10:40] VITALS: BMI 20.2
[~2017-11-04 12:21] MED LIST: Ketorolac Tromethamine 30 MG/ML VIAL ONE; Lidocaine 1% PF 5 ML VIAL ONE; Ondansetron HCl/PF 4 MG/2 ML Vial ONE; Propofol 200 MG/20 ML VIAL ONE
[2017-11-04] MEDS ORDERED: CEFAZOLIN/Water 2 GM/20 ML SYRINGE ONE (13:03)
[2017-11-04 13:05] LABS: #Basophils 0.1 thou/uL (0.0-0.2); #Eosinphils 0.2 thou/uL (0.0-0.7); #Lymphocytes 1.6 thou/uL (1.20-3.40); #Monocytes 0.5 thou/uL (0.11-0.59); #Neutrophils 4.4 thou/uL (1.40-6.50); %Basophils 0.9 % (0.0-1.0); %Eosinophils 3.1 % (0.0-10.0); %Lymphocytes 24.1 % (21.0-51.0); %Monocytes 7.6 % (0.0-10.0); %Neutrophils 64.2 % (42.0-75.0); Hemoglobin 13.9 g/dL (14.0-18.0); Mean Corpuscular HGB CONC 31.9 g/dL (32.0-36.0); Mean Corpuscular Hemoglobin 31.3 pg (27.0-31.0); Mean Corpuscular Volume 98.2 fl (80.0-94.0); Mean Platelet Volume 7.1 fL (7.4-10.4); Platelet Count 242 thou/uL (130-400); RBC Distribution Width 12.4 % (11.5-14.5); Red Blood Cell (RBC) Count 4.46 mill/uL (4.70-6.10); White Blood Cell (WBC) Count 6.8 thou/uL (4.8-10.8)
[2017-11-04] MEDS ORDERED: Bupivacaine/Epinephrine 0.25% 30 ML VIAL ONE (14:47)
[2017-11-04] MEDS ORDERED: Fentanyl 250 MCG/5 ML VIAL ONE (14:54)
--- NOTE | 2017-11-04 16:40 | RAD ---
FRONTAL RADIOGRAPH CHEST 11/04/17 COMPARISON: 06/29/17 HISTORY: Mediport placement. FINDINGS: There is a stable single lead transvenous pacing device inserted via left subclavian approach. There is no pneumothorax, pleural fluid, lobar consolidation, or alveolar edema. There is atheroscler otic calcification in the aortic arch. There is a CT injectable right sided Port-A-Cath in place, distal tip overlying the cavoatrial juncti on. There is mild stable biapical pleural thickening. IMPRESSION: Right CT injectable Port-A-Cath with no evidence for pneumothorax. POS: [facility]
--- NOTE | 2017-11-07 14:15 | OP ---
DATE OF PROCEDURE: 11/04/2017 PREOPERATIVE DIAGNOSIS: Squamous cell carcinoma, head and neck. POSTOPERATIVE DIAGNOSIS: Squamous cell carcinoma, head and neck. PROCEDURE PERFORMED: Tunneled central line subcutaneous port (MediPort). SURGEON: Naresh Daugherty M.D. ANESTHESIA: TIVA, local. ESTIMATED BLOOD LOSS: Minimal. COMPLICATIONS: None. SPECIMEN: None. FINDINGS: Tip of the catheter is at the atriocaval junction. TECHNIQUE: The patient was taken to the operating room and placed supine on the table. After sedati on was obtained, bilateral neck and chest were shaved, prepped and draped in a sterile fashion. Loca l anesthetic infiltrated over the right internal jugular vein. Internal jugular vein was cannulated using a 22-gauge finder needle followed by a Seldinger needle. Wire was passed into the superior arcadio a cava under fluoroscopic guidance. A small jazmine was made at the wire entrance site. A separate 3-c m incision was made in the right upper chest. Subcutaneous pocket made below the lower incision. Tu milagros for the MediPort tunneled from the inferior to superior incision. Introducer sheath was placed over the wire into the superior vena cava under fluoroscopic guidance. The dilator and wire were rem haylee. The end of the catheter was threaded into the sheath as the sheath was peeled away. The tip o f the catheter is at the atriocaval junction. The MediPort tubing is cut to fit the MediPort at the lower incision and connected to the MediPort, which is sewn to the chest wall in the subcutaneous poc ket using Prolene. MediPort flushes and draws blood without difficulty. It was flushed with heparin flush. All incisions were irrigated and closed using 3-0 Vicryl, 4-0 Monocryl, and Dermabond. The patient was en route to recovery in stable condition. All instrument counts, needle counts, and lap counts were correct.
== END 2017-11-04 17:04 | disposition home or self-care (01) ==
LOC: SDC 12:21
PROVIDERS: ATTEND Surgery
PROC: 0JH63WZ Insertion of Totally Implantable Vascular Access Device into Chest Subcutaneous Tissue and Fascia, Percutaneous Approach (ICD-10-PCS; principal; 2017-11-04)
DX: C44.42 Squamous cell carcinoma of skin of scalp and neck (principal); E11.9 Type 2 diabetes mellitus without complications; I51.9 Heart disease, unspecified; N28.9 Disorder of kidney and ureter, unspecified; E07.9 Disorder of thyroid, unspecified; I48.91 Unspecified atrial fibrillation; Z79.01 Long term (current) use of anticoagulants; Z79.899 Other long term (current) drug therapy; Z95.0 Presence of cardiac pacemaker; Z98.890 Other specified postprocedural states
CPT/HCPCS: 36561; 71045; 85025; C1788; 36415; J1642; J1885; J2001; J2405; J2704; J3010

== ENCOUNTER 2018-02-09 07:27 | Outpatient (CLI) | payer MEDICARE ==
--- NOTE | 2018-02-09 09:42 | CT ---
CT OF NECK WITH CONTRAST: Date: 02/09/18 CLINICAL HISTORY: Submandibular mass, head/neck cancer. History of right side neck mass, squamous cell of submandibular gland. Reference made to 11/03/[address] exam. FINDINGS: Redemonstration of circumferential mucosal prominence of the oropharynx, demonstrating a similar CT a ppearance to prior PET CT exam. There has been interval decrease in size of right submandibular lymph node, which remains pathologically enlarged, with a rounded morphology containing a diameter of 1.1 cm, comparing to 2.3 cm on prior exam. No discrete thyroid lesion. Parotid glands are unremarkable. T here is streak artifact emanating from oral cavity, which limits visualization. Nonspecific partially visualized mediastinal lymph nodes are present. Biapical pleural scarring is present. There is a rig ht internal jugular approach venous chest port. Left side cardiac pacing device is present. There are osseous degenerative changes. IMPRESSION: Interval decrease in volume of right submandibular lymph node, which remains pathologically enlarged, indicating residual component of malignancy. Recommend continued imaging follow-up. POS: [facility]
[2018-02-09] MEDS ORDERED: Iopamidol 370 76% 100 ML VIAL ONE (16:15)
== END 2018-02-09 07:28 | disposition home or self-care (01) ==
LOC: CT 07:27
PROVIDERS: ATTEND Radiology Radiation Oncology
DX: C08.0 Malignant neoplasm of submandibular gland (principal); C80.1 Malignant (primary) neoplasm, unspecified
CPT/HCPCS: 70491; 82565

== ENCOUNTER 2018-04-27 07:45 | Outpatient (CLI) | payer MEDICARE ==
--- NOTE | 2018-04-27 11:52 | PET ---
PET CT: HISTORY: 78-year-old male with head and neck cancer. 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 Exam requested for restaging. Patient is status post radiation therapy. TECHNIQUE: PET scanning with CT attenuation correction was performed from the vertex through the proximal thighs following the intravenous administration of 12.2 mCi [id number] in the right antecubital fossa. Imaging was performed after an uptake interval of 53 minutes. COMPARISON: PET CT of 11/03/17. CORRELATION: CT neck of 02/09/18. FINDINGS: No mary hypermetabolism is seen in the neck, chest, axilla, abdomen, or pelvis. No hypermetabolic ne ck mass is identified. No hypermetabolic pulmonary nodules, liver, adrenal, or skeletal lesions are identified. There is physiologic activity in the brain, GI and tracts. The CT scan used for attenuation correction demonstrates no evidence of pleural effusions or ascites. There is a left renal cyst. There is sigmoid diverticulosis. IMPRESSION: Excellent response to therapy since 11/03/17. No evidence of malignancy/metastatic disease. POS: [facility]
== END 2018-04-27 07:46 | disposition home or self-care (01) ==
LOC: PET 07:45
PROVIDERS: ATTEND Radiology Radiation Oncology
DX: C80.1 Malignant (primary) neoplasm, unspecified (principal); Z92.21 Personal history of antineoplastic chemotherapy
CPT/HCPCS: 78815; A9552

== ENCOUNTER 2018-08-26 08:04 | Observation (INO) | payer MEDICARE ==
[2018-08-26 08:26] LABS: #Eosinphils 0.1 thou/uL (0.0-0.7); #Lymphocytes 1.5 thou/uL (1.20-3.40); #Monocytes 0.3 thou/uL (0.11-0.59); #Neutrophils 1.9 thou/uL (1.40-6.50); %Basophils 0.9 % (0.0-1.0); %Eosinophils 2.5 % (0.0-10.0); %Lymphocytes 38.5 % (21.0-51.0); %Monocytes 8.3 % (0.0-10.0); %Neutrophils 49.8 % (42.0-75.0); Mean Corpuscular HGB CONC 32.8 g/dL (32.0-36.0); Mean Corpuscular Hemoglobin 32.4 pg (27.0-31.0); Mean Corpuscular Volume 98.6 fL (78.0-98.0); Mean Platelet Volume 7.3 fL (7.4-10.4); Platelet Count 153 thou/uL (130-400); RBC Distribution Width 12.9 % (11.5-14.5); Red Blood Cell (RBC) Count 4.01 mill/uL (4.70-6.10); White Blood Cell (WBC) Count 3.8 thou/uL (4.8-10.8)
[2018-08-26 08:32] LABS: INR-International Normal Ratio 1.8; PTT 30.9 SEC (22.9-36.1); Prothrombin Time 20.6 SEC (12.0-14.7)
[2018-08-26 08:46] LABS: ALT (SGPT) 28 U/L (8-55); AST (SGOT) 40 U/L (5-34); Albumin 4.1 g/dL (3.4-4.8); Alkaline Phosphatase 44 U/L (40-150); Anion Gap 11 mmol/L (10-20); BUN (Urea Nitrogen) 25 mg/dL (8.4-25.7); Calc. Creatinine Clearance 0 mL/min (70-130); Calcium 9.7 mg/dL (7.8-10.44); Carbon Dioxide 30 mmol/L (23-31); Chloride 103 mmol/L (98-107); Estimated GFR-MDRD 58; Globulin 2.8 g/dL (2.4-3.5); Glucose 185 mg/dL (83-110); Lipase 43 U/L (8-78); Potassium 4.1 mmol/L (3.5-5.1); Protein, Total 6.9 g/dL (5.8-8.1); Sodium 140 mmol/L (136-145)
[2018-08-26 09:17] LABS: Digoxin 0.79 ng/mL (0.8-2.0)
--- NOTE | 2018-08-26 09:46 | RAD ---
PORTABLE CHEST ONE VIEW: 08/26/2018 8:53 a.m. HISTORY: Chest pain. COMPARISON: 11/04/2017 FINDINGS: A left-sided pacemaker device remains in place. The right-sided Port-A-Cath has been removed in the interim. The heart size is normal. The lungs are well expanded without focal areas of consolidation , pneumothorax, or pleural effusions. IMPRESSION: No acute process. POS: [facility]
--- NOTE | 2018-08-26 10:19 | CT ---
CTA CHEST WITH IV CONTRAST AND 3D POST PROCESSING: CTA ABDOMEN WITH IV CONTRAST AND 3D POST PROCESSING: HISTORY: Chest pain. COMPARISON: 06/30/2017 FINDINGS: There are vascular calcifications without evidence of aneurysmal dilatation of the thoracoabdominal a emi. The thoracoabdominal aorta is well opacified without intimal flap to suggest dissection. No pleural or pericardial effusions are seen. There is scarring in the lung apices. No mass or foca l areas of consolidation are identified. No free air or free fluid is seen in the abdomen. The patient is post cholecystectomy. The pancreas is again seen. There are cysts in the kidneys. There are degenerative changes in the thoracolumbar spine. There is mild to moderate stenosis at the origin of the SMA and the right renal artery. IMPRESSION: No evidence of aortic dissection. POS: [facility]
[2018-08-26 12:19] LABS: Troponin I 0.015 ng/mL (< 0.028)
[2018-08-26] MEDS ORDERED: Acetaminophen 325 MG TAB PO PRN (13:14)
[2018-08-26] MEDS ORDERED: Ondansetron PF 4 MG/2 ML Vial IVP PRN ×2 (13:14→17:14)
[2018-08-26] MEDS ORDERED: Ondansetron ODT 4 MG TAB SL PRN (13:14)
[2018-08-26] MEDS ORDERED: Nitroglycerin 0.4 MG TAB (25 Tab Bottle) SL PRN ×2 (13:15→17:13)
[2018-08-26 13:22] VITALS: BMI 20.8
[2018-08-26] MEDS ORDERED: Zolpidem Tartrate 5 MG TAB PO PRN (17:14)
[2018-08-26 17:24] LABS: Troponin I 0.012 ng/mL (< 0.028)
[2018-08-26] MEDS: Atorvastatin Calcium 40 MG TAB PO SCH (20:09)
--- NOTE | 2018-08-26 23:40 | HP ---
CHIEF COMPLAINT: Chest pain. HISTORY OF PRESENT ILLNESS: The patient is a 78-year-old male, who was at work in his usual state of health and suddenly began to have significant severe substernal pain, right in the middle of his chest. He never had anything like it before. It has felt similar to him to a pancreatitis attack he had previously. The pain actually went downward in his chest more towards the xiphoid. He did experience some mild nausea with it, but there was no dyspnea, shortness of breath, or near syncope. He denies any recent fever, cough, or upper respiratory symptoms. The pain caused him to pull out his nitroglycerin and after the third one, he finally got some relief. However, thinking through his risk factors such as hyperlipidemia, diabetes, and hypertension, he felt it would be better to have this further worked up and came to the emergency room for further evaluation. His usual family services worker is Dr. Delgado. In the ER, his troponins were initially negative , his workup for pancreatitis negative and so he is put into further evaluate his heart. PAST MEDICAL HISTORY: Significant for type 2 diabetes, atrial fibrillation with a leaky mitral valve, dyslipidemia; history of squamous cell carcinoma under his right jaw, he underwent 2 months of chemo and 2 months of radiation and has resolved; and prior history of pancreatitis. PAST SURGICAL HISTORY: Includes pacemaker, tonsillectomy, and cholecystectomy. SOCIAL HISTORY: Drinks socially every week, a small glass of red wine. Denies any drug use. No smoking history. PSYCHIATRIC HISTORY: None. ALLERGIES: HE HAS NO KNOWN DRUG ALLERGIES. MEDICATIONS: On admission include; 1. Atorvastatin 40 mg nightly. 2. Zetia 10 mg nightly. 3. Metoprolol succinate extended release 50 mg daily. 4. Digoxin 0.25 mg daily. 5. Warfarin 5 mg everyday, but Tuesday, Tuesday, and Tuesday when he takes 1-1/2 tablets. 6. Levothyroxine 50 mcg daily. 7. Vascepa 2 g b.i.d. 8. Actos 50 mg daily. 9. Januvia 100 mg daily. 10. Xyzal 5 mg daily. 11. Mometasone 0.1% topical cream, applied daily p.r.n. 12. He takes Saw [place] 160 mg 2 daily. 13. Magnesium 250 mg 1 dose daily. REVIEW OF SYSTEMS: CONSTITUTIONAL: Denies fever, chills, or general malaise. HEENT: Eyes; no drainage or discharge. Ears, nose, and throat; no lesions, sores, pain, or discharge. CHEST: Negative for shortness of breath or cough. CARDIOVASCULAR: Negative for palpitations, but significant for the aforementioned substernal chest pain. GASTROINTESTINAL: Denies vomiting or diarrhea, but did have nausea when experiencing his chest discomfort. : Denies dysuria, frequency, or blood in urine or stool. MUSCULOSKELETAL: Denies any aches or pains in any joints or muscle groups. SKIN: No new rashes or lesions. NEUROLOGIC: No trouble with mentation, headaches, or confusion. Endo/Lymph: no trouble with edema or bruising. PHYSICAL EXAMINATION: At the time of admission; VITAL SIGNS: Blood pressure 122/69, pulse 62, respirations 20, and temperature 98, pain scale 6/10 at that time, and 99% O2 room air sat. GENERAL: This is a thin, tall, male; alert, oriented, and cooperative. HEENT: Normocephalic and atraumatic. Pupils equal, round, and reactive to light. Arcus senilis bilaterally. TMs, nares, and pharynx are clear. NECK: Supple. Trachea midline. CHEST: Clear to auscultation. Chest with probable pacemaker in place. Nontender. HEART: Regular rate and rhythm. Mild 2/6 murmur. ABDOMEN: Soft and scaphoid. No hepatosplenomegaly. : Deferred. EXTREMITIES: Without clubbing, cyanosis, or edema. Normal range of motion present. SKIN: Without acute rashes or lesions, but it is very cold to touch. NEUROLOGIC: Cranial nerves are intact. Mental status clear. Gait and cerebellar function normal. LABORATORY DATA: Lab work on admission; sodium 140, potassium 4.1, chloride 103 , CO2 is 30, BUN 25, creatinine 1.22 with a GFR of 58, glucose at that time was 185. AST elevated at 40, other liver functions normal. Troponins negative at 0.27 with normal liver function test and lipase of 43. INR is subtherapeutic at 1.8. Lanoxin level of 0.79. ASSESSMENT: 1. Chest pain in an individual with multiple risk factors including dyslipidemia and diabetes. 2. Rys-ecxwjhx-dsssviniu diabetes. 3. History of atrial fibrillation with bad mitral valve. 4. Hypothyroidism. PLAN: Lexiscan stress test. Dr. Yoder will see the patient in cardiac consultation. We will serially reevaluate the patient. Keep the head of bed up to 30 degrees because I suspect this may have more to do with GERD and esophagitis, with relief being achieved by esophageal relaxation rather than cardiac. Job ID: [id number] MTDD
--- NOTE | 2018-08-27 02:34 | CON ---
DATE OF CONSULTATION: HISTORY OF PRESENT ILLNESS: Naun Mitchell is a pleasant 78-year-old white male, patient of Dr. Delgado. He did have a cardiac catheterization in 10/[address] Ross. He had coronary ectasias but no significant stenosis. He has chronic atrial fibrillation as well as a pacemaker. He is on warfarin chronically. He had a stress test 6 to 7 years ago that was normal. He was admitted with chest pain in June 2017, and was ultimately found that he had cholecystitis and he underwent cholecystectomy. He also has recently undergone chemo and radiation therapy for right-sided mandibular squamous cell carcinoma. He was at work, working in the [employer] and began to have lower sternal pressure, was very intense, associated with some nausea, but no shortness of breath. He thought he was diaphoretic, but did not feel any perspiration on his forehead. He had nitroglycerin and took several of these and the pain subsided after 5 to 10 minutes and he came to the emergency room. He has not had any discomfort since. PAST MEDICAL HISTORY: Diabetes, hyperlipidemia, hypertension, sick sinus syndrome, status post pacemaker placement, chronic atrial fibrillation on Coumadin. MEDICATIONS AT HOME: Include; 1. Atorvastatin 40 q.p.m. 2. Digoxin 250 mcg q.p.m. 3. Zetia 10 mg at bedtime. 4. Vascepa two tablets b.i.d. 5. Levothyroxine 50 mcg daily. 6. Magnesium 250 q.a.m. 7. Metoprolol 50 q.a.m. 8. Actos 15 mg q.a.m. 9. Saw palmetto two capsules b.i.d. 10. Januvia 100 mg q.p.m. 11. Warfarin 5 mg q.p.m. ALLERGIES: NONE. SOCIAL HISTORY: He does not smoke or drink. REVIEW OF SYSTEMS: A 12-point review of systems is, otherwise, unremarkable. PHYSICAL EXAMINATION: VITAL SIGNS: Blood pressure 106/56, pulse of 60, paced on the monitor. HEENT: PERRL. NECK: Supple. CHEST: Clear. CARDIAC: S1 and S2 normal without any S3, S4, or murmurs. Carotid upstrokes normal without bruits. ABDOMEN: Normal bowel sounds without tenderness. EXTREMITIES: Revealed no clubbing, cyanosis, or edema. NEUROLOGIC: Grossly intact. SKIN: Warm and dry. LABORATORY DATA: EKG reveals paced rhythm. Hemoglobin 13.0, hematocrit 39.6, white count 3800, platelets 153,000. INR 1.8. Sodium 140, potassium 4.1, chloride 103, carbon dioxide 30, BUN 25, creatinine 1.22, glucose 185. Cardiac enzymes x3 are normal. Digoxin level 0.79. IMPRESSION: 1. 5-10 minutes of lower sternal chest pressure relieved with nitroglycerin with totally normal cardiac enzymes. 2. Sick sinus syndrome with chronic atrial fibrillation and pacemaker placement. 3. Hypertension. 4. Hyperlipidemia. 5. Diabetes. 6. Status post radiation chemotherapy for squamous cell carcinoma. 7. History of cholecystectomy. PLAN: The patient will undergo adenosine Cardiolite testing to further evaluate his discomfort. Coumadin is being held in case he would need to undergo cardiac catheterization. Job ID: [id number] [facility]
[2018-08-27 06:13] LABS: Hemoglobin A1c 6.2 % (4.0-6.0)
[2018-08-27 06:14] LABS: INR-International Normal Ratio 1.8; Prothrombin Time 20.9 SEC (12.0-14.7)
[2018-08-27] MEDS: Levothyroxine Sodium 50 MCG TAB PO SCH (06:18)
[2018-08-27] MEDS: Alogliptin 25 MG TAB PO SCH (11:57)
[2018-08-27] MEDS: Digoxin 0.25 MG TAB PO SCH (11:58)
[2018-08-27] MEDS: Ezetimibe 10 MG TAB PO SCH (11:59)
[2018-08-27] MEDS: Pioglitazone HCl 15 MG TAB PO SCH (11:59)
--- NOTE | 2018-08-27 14:22 | NM ---
CARDIAC SPECT: CLINICAL HISTORY: 78-year-old male with chest pain, atrial fibrillation, hypertension, dyslipidemia, and diabetes. TECHNIQUE: A myocardial perfusion scan was performed using the single isotope one day protocol with technetium-9 9m sestamibi. 9 mCi were injected intravenously for the rest exam followed by 28 mCi for the stress e xam. Pharmacologic stress with Adenosine was monitored and interpreted by Dr. Yoder. FINDINGS: A fixed defect is seen in the apex. No reversible defects are identified. GATED SPECT LVEF: 54%. WALL MOTION EXAM: No significant wall motion abnormalities are seen. IMPRESSION: No evidence of reversible ischemia. POS: [facility]
[2018-08-27] MEDS ORDERED: Communication Order-Pharmacy FS SCH (18:45)
[2018-08-27] MEDS ORDERED: Phytonadione 10 MG/ML AMP PO SCH (19:15)
[2018-08-27] MEDS: Atorvastatin Calcium 40 MG TAB PO SCH (19:54)
[2018-08-28] MEDS: Alogliptin 25 MG TAB PO SCH (04:35)
[2018-08-28] MEDS: Pioglitazone HCl 15 MG TAB PO SCH (04:36)
[2018-08-28 05:19] LABS: INR-International Normal Ratio 1.4; Prothrombin Time 17.2 SEC (12.0-14.7)
[2018-08-28] MEDS ORDERED: Sodium Chloride 0.9% 1,000 ML IV SCH ×2 (06:00→09:14)
[2018-08-28] MEDS: Levothyroxine Sodium 50 MCG TAB PO SCH (06:48)
[2018-08-28] MEDS: Digoxin 0.25 MG TAB PO SCH (06:48)
[2018-08-28] MEDS: Ezetimibe 10 MG TAB PO SCH (06:48)
[2018-08-28] MEDS ORDERED: Heparin 10,000 UNITS/1 ML VIAL ONE (08:40)
[2018-08-28] MEDS ORDERED: Midazolam HCl 2 mg/2 ml Vial ONE (08:41)
[2018-08-28] MEDS ORDERED: Fentanyl 100 MCG/2 ML VIAL ONE (08:41)
[2018-08-28] MEDS ORDERED: Protamine Sulfate 50 MG/5 ML VIAL ONE (09:04)
[2018-08-28] MEDS ORDERED: Nitroglycerin 0.4 MG TAB (25 Tab Bottle) SL PRN (09:12)
[2018-08-28] MEDS ORDERED: traMADol HCl 50 MG TAB PO PRN (09:12)
[2018-08-28] MEDS ORDERED: Sodium Chloride 0.9% 200 ML IV PRN (09:15)
--- NOTE | 2018-08-28 09:30 | STRESS ---
Acquisition Time: 2018-08-27 08:31:56 Total Exercise Time: 00:04:00 Test Indications: CHEST PAIN Medications: Protocol: ADENOSINE Max HR: 065 BPM 45% of Pred: 143 BPM Max BP: 122/060 mmHG Max Work Load: 1.0 METS RESTING ECG: PACED RHYTHM WITH A-FIB SYMPTOMS: LAGOS NORMAL BP RESPONSE ECTOPY: NONE ECG STRESS: NO SIGNIFICANT CHANGES INTERPRETATION: AWAIT NUCLEAR IMAGES FOR DEFINITIVE DIAGNOSIS Confirmed by MARCOS YOO ([id number]), non linear editor RENARD ANDRE ([id number]) on 08/28/2018 9:29:56 AM Referred By: MD HARTLEY Confirmed By:MARCOS YOO
[2018-08-28 11:30] VITALS: BP 121/58; TEMP 97.5
[2018-08-29] MEDS ORDERED: Aspirin 81 mg Enteric Coated Tablet PO SCH (09:00)
--- NOTE | 2018-09-01 15:23 | EKG ---
Test Reason : CP Blood Pressure : / mmHG Vent. Rate : 064 BPM Atrial Rate : 065 BPM P-R Int : 000 ms QRS Dur : 176 ms QT Int : 460 ms P-R-T Axes : 000 -79 083 degrees QTc Int : 474 ms Ventricular-paced rhythm No STEMI Abnormal ECG Similar morphology to JUN 2017 Confirmed by GLENROY Alonzo, KAYLEN ([id number]), manuscript editor JUAN HALL ([id number]) on 09/01/2018 3:22:48 PM Referred By: Confirmed By:KAYLEN TIM M.D.
--- NOTE | 2018-09-01 15:23 | EKG ---
Test Reason : CP Blood Pressure : / mmHG Vent. Rate : 065 BPM Atrial Rate : 288 BPM P-R Int : 000 ms QRS Dur : 180 ms QT Int : 456 ms P-R-T Axes : 000 -74 088 degrees QTc Int : 474 ms Ventricular-paced rhythm No STEMI Abnormal ECG No changes Confirmed by GLENROY Alonzo, KAYLEN ([id number]), advertising editor JUAN HALL ([id number]) on 09/01/2018 3:23:09 PM Referred By: NAEEM Confirmed By:KAYLEN TIM M.D.
== END 2018-08-28 15:45 | disposition home or self-care (01) ==
LOC: ERS 08:04 → 2SW 11:27
PROVIDERS: ADMIT Specialist; ATTEND Specialist
PROC: 4A023N7 Measurement of Cardiac Sampling and Pressure, Left Heart, Percutaneous Approach (ICD-10-PCS; principal; 2018-08-26)
PROC: B2111ZZ Fluoroscopy of Multiple Coronary Arteries using Low Osmolar Contrast (ICD-10-PCS; 2018-08-26)
DX: I25.10 Atherosclerotic heart disease of native coronary artery without angina pectoris (principal); E78.00 Pure hypercholesterolemia, unspecified; E11.9 Type 2 diabetes mellitus without complications; E78.5 Hyperlipidemia, unspecified; I10 Essential (primary) hypertension; E03.9 Hypothyroidism, unspecified; I48.2 Chronic atrial fibrillation; I49.5 Sick sinus syndrome; I34.0 Nonrheumatic mitral (valve) insufficiency; Z79.01 Long term (current) use of anticoagulants; Z79.84 Long term (current) use of oral hypoglycemic drugs; Z79.899 Other long term (current) drug therapy; Z95.0 Presence of cardiac pacemaker
CPT/HCPCS: 71045; 71275; 78452; 80053; 80061; 80162; 82274; 83036; 83690; 84443; 84484 ×2; 85025; 85347; 85610 ×3; 85730; 93005; 93017; 93458; 96360; 96361; 99285; A9500; C1769; G0378 ×2; 36415; 99152; J1644; J2250; J2720; J3010; J3430

== ENCOUNTER 2019-08-04 09:21 | Emergency (ER) | payer MEDICARE ==
[2019-08-04] MEDS ORDERED: Lidocaine 1% w/Epinephrine 1:100K 20 ML VIAL ONE (09:46)
[2019-08-04 10:35] LABS: #Eosinphils 0.2 thou/uL (0.0-0.7); #Lymphocytes 0.5 thou/uL (1.20-3.40); #Monocytes 0.5 thou/uL (0.11-0.59); #Neutrophils 4.1 thou/uL (1.40-6.50); %Basophils 0.2 % (0.0-1.0); %Eosinophils 3.4 % (0.0-10.0); %Monocytes 8.8 % (0.0-10.0); %Neutrophils 77.7 % (42.0-75.0); Hemoglobin 12.5 g/dL (14.0-18.0); Mean Corpuscular Hemoglobin 33.7 pg (27.0-31.0); Mean Platelet Volume 7.6 fL (7.4-10.4); Platelet Count 136 thou/uL (130-400); RBC Distribution Width 12.4 % (11.5-14.5); White Blood Cell (WBC) Count 5.3 thou/uL (4.8-10.8)
[2019-08-04] MEDS ORDERED: Bacitracin 1 PK ONE (11:51)
== END 2019-08-04 12:00 | disposition home or self-care (01) ==
LOC: ERS 09:21
DX: S81.811A Laceration without foreign body, right lower leg, initial encounter (principal); I49.9 Cardiac arrhythmia, unspecified; I48.91 Unspecified atrial fibrillation; E11.9 Type 2 diabetes mellitus without complications; E78.5 Hyperlipidemia, unspecified; E78.00 Pure hypercholesterolemia, unspecified; Z79.01 Long term (current) use of anticoagulants; W22.8XXA Striking against or struck by other objects, initial encounter
CPT/HCPCS: 12002; 36415; 85025

== ENCOUNTER 2019-08-14 07:55 | Emergency (ER) | payer MEDICARE | END 2019-08-14 10:05 | disposition home or self-care (01) | LOC: ERS 07:55 | DX: S81.811D Laceration without foreign body, right lower leg, subsequent encounter (principal); I49.9 Cardiac arrhythmia, unspecified; I48.91 Unspecified atrial fibrillation; E11.9 Type 2 diabetes mellitus without complications; K21.9 Gastro-esophageal reflux disease without esophagitis; E78.5 Hyperlipidemia, unspecified; E78.00 Pure hypercholesterolemia, unspecified; Z79.01 Long term (current) use of anticoagulants; X58.XXXD Exposure to other specified factors, subsequent encounter | CPT/HCPCS: 99282 ==

== ENCOUNTER 2020-06-12 13:48 | Emergency (ER) | payer MEDICARE, OTHER ==
[2020-06-13 12:00] LABS: SARS-CoV-2 MS2 Positive; SARS-CoV-2 N Gene Positive; SARS-CoV-2 S Gene Positive; SARS-CoV-2 by NAA DETECTED (NotDetected); SARS-CoV-2 orf1ab Positive
== END 2020-06-12 14:10 | disposition home or self-care (01) ==
LOC: ERS 13:48
DX: U07.1 COVID-19 (principal); I48.91 Unspecified atrial fibrillation; E11.9 Type 2 diabetes mellitus without complications; K21.9 Gastro-esophageal reflux disease without esophagitis; E78.5 Hyperlipidemia, unspecified; Z79.01 Long term (current) use of anticoagulants; E78.00 Pure hypercholesterolemia, unspecified
CPT/HCPCS: 99283; U0003; 87635

== ENCOUNTER 2020-08-28 18:41 | Emergency (ER) | payer MEDICARE ==
--- NOTE | 2020-08-28 19:35 | RAD ---
RADIOGRAPH LEFT FEMUR 2VIEWS: DATE: 08/28/2020 HISTORY: 80-year-old male status post acute traumatic blunt injury to thigh FINDINGS: There is no evidence of fracture. IMPRESSION: No fracture identified.
[2020-08-28 19:49] LABS: INR-International Normal Ratio 2.7
== END 2020-08-28 20:22 | disposition home or self-care (01) ==
LOC: ERS 18:41
DX: S70.12XA Contusion of left thigh, initial encounter (principal); E11.9 Type 2 diabetes mellitus without complications; K21.9 Gastro-esophageal reflux disease without esophagitis; E78.5 Hyperlipidemia, unspecified; E78.00 Pure hypercholesterolemia, unspecified; I48.91 Unspecified atrial fibrillation; Z79.82 Long term (current) use of aspirin; Z79.899 Other long term (current) drug therapy; Z79.01 Long term (current) use of anticoagulants; W22.8XXA Striking against or struck by other objects, initial encounter
CPT/HCPCS: 36415; 85610

== ENCOUNTER 2021-01-23 10:38 | Outpatient (CLI) | payer MEDICARE ==
[2021-01-23 17:57] LABS: SARS-CoV-2 PCR by NAA Not Detected (NotDetected)
== END 2021-01-23 10:39 | disposition home or self-care (01) ==
LOC: LABBT 10:38
PROVIDERS: ATTEND Internal Medicine Cardiovascular Disease
DX: Z01.812 Encounter for preprocedural laboratory examination (principal); Z20.822 Contact with and (suspected) exposure to COVID-19
CPT/HCPCS: U0003; U0005; 87635

== ENCOUNTER 2021-02-01 14:49 | Inpatient (IN) | payer MEDICARE ==
[2021-02-01] MEDS ORDERED: Ibuprofen 200 MG TAB ONE (15:07)
[2021-02-01] MEDS ORDERED: cefTRIAXone\\ROCEPHIN 2 GM VIAL ONE (15:24)
[2021-02-01] MEDS ORDERED: Vancomycin 1 GM/200 ML BAG ONE (15:24)
[2021-02-01 15:48] LABS: #Eosinphils 0.1 thou/uL (0.0-0.7); #Lymphocytes 0.5 thou/uL (1.20-3.40); #Monocytes 0.2 thou/uL (0.11-0.59); #Neutrophils 7.8 thou/uL (1.40-6.50); %Basophils 0.2 % (0.0-1.0); %Eosinophils 0.9 % (0.0-10.0); %Lymphocytes 5.9 % (21.0-51.0); %Monocytes 2.7 % (0.0-10.0); %Neutrophils 90.4 % (42.0-75.0); Mean Corpuscular HGB CONC 32.4 g/dL (32.0-36.0); Mean Corpuscular Hemoglobin 33.6 pg (27.0-31.0); Mean Platelet Volume 7.6 fL (7.4-10.4); Platelet Count 323 thou/uL (130-400); RBC Distribution Width 18.3 % (11.5-14.5); Red Blood Cell (RBC) Count 3.28 mill/uL (4.70-6.10); White Blood Cell (WBC) Count 8.6 thou/uL (4.8-10.8)
[2021-02-01 15:54] LABS: INR-International Normal Ratio 1.4; PTT 34.2 sec (22.9-36.1); Prothrombin Time 17.5 sec (12.0-14.7)
[2021-02-01 16:04] LABS: ALT (SGPT) 79 U/L (8-55); AST (SGOT) 113 U/L (5-34); Albumin 3.1 g/dL (3.4-4.8); Alkaline Phosphatase 648 U/L (40-110); Anion Gap 14 mmol/L (10-20); BUN (Urea Nitrogen) 14 mg/dL (8.4-25.7); Bilirubin, Total 8.9 mg/dL (0.2-1.2); Calc. Creatinine Clearance 0 mL/min (70-130); Calcium 8.8 mg/dL (7.8-10.44); Carbon Dioxide 29 mmol/L (23-31); Chloride 98 mmol/L (98-107); Globulin 3.5 g/dL (2.4-3.5); Glucose 150 mg/dL (83-110); Lipase 89 U/L (8-78); Potassium 4.7 mmol/L (3.5-5.1); Protein, Total 6.6 g/dL (5.8-8.1); Sodium 136 mmol/L (136-145)
[2021-02-01 16:27] LABS: CKMB 2.8 ng/mL (0-6.6)
[2021-02-01] MEDS ORDERED: Lorazepam 2 MG/ML VIAL ONE (16:46)
[2021-02-01] MEDS ORDERED: Aspirin Chewable 81 MG TAB ONE (18:18)
[2021-02-01 18:37] LABS: Lactic Acid 3.6 mmol/L (0.5-2.2)
[2021-02-01 18:57] LABS: Troponin I 0.082 ng/mL (< 0.028)
[2021-02-01] MEDS ORDERED: Acetaminophen 325 MG TAB PO PRN (20:24)
[2021-02-01] MEDS ORDERED: Ondansetron PF 4 MG/2 ML Vial IVP PRN (20:25)
[2021-02-01] MEDS ORDERED: Fentanyl 100 MCG/2 ML VIAL SLOW IVP PRN (20:25)
[2021-02-01] MEDS ORDERED: Dextrose 50% Abboject 50 ML SYRINGE IVP PRN (20:30)
[2021-02-01] MEDS ORDERED: Dextrose 5% in Water 1,000 ML IV PRN (20:30)
[2021-02-01] MEDS ORDERED: Sodium Chloride 0.9% (PF) 10 ML VIAL FS PRN (20:30)
[2021-02-01] MEDS ORDERED: Norepinephrine 8 MG/0.9% NS 250 ML ONE (22:45)
[2021-02-01] MEDS: Sodium Chloride 0.9% 1,000 ML IV SCH (23:48)
[2021-02-02] MEDS ORDERED: Norepinephrine 8 MG/0.9% NS 250 ML IVPB SCH (01:00)
[2021-02-02] MEDS: MEROPENEM 1 GM/50 ML 1 GM in Premix Bag 1 BAG IVPB SCH ×4 (01:01→22:18)
[2021-02-02] MEDS: Pantoprazole 40 MG VIAL IVP SCH ×2 (01:03→08:40)
[2021-02-02 01:08] LABS: SARS-CoV-2 NAA Rapid Test Not Detected (NotDetected)
[2021-02-02] MEDS: Sodium Chloride 0.9% 1,000 ML IV SCH ×4 (03:15→18:06)
[2021-02-02] MEDS: Vancomycin 1 GM in Premix Bag 1 BAG IVPB SCH ×2 (04:17→15:37)
[2021-02-02 04:49] LABS: ALT (SGPT) 66 U/L (8-55); AST (SGOT) 98 U/L (5-34); Albumin 2.4 g/dL (3.4-4.8); Alkaline Phosphatase 453 U/L (40-110); Anion Gap 12 mmol/L (10-20); BUN (Urea Nitrogen) 20 mg/dL (8.4-25.7); Bilirubin, Total 6.2 mg/dL (0.2-1.2); Calc. Creatinine Clearance 64 mL/min (70-130); Calcium 7.9 mg/dL (7.8-10.44); Carbon Dioxide 23 mmol/L (23-31); Chloride 102 mmol/L (98-107); Globulin 3.2 g/dL (2.4-3.5); Glucose 203 mg/dL (83-110); Magnesium 1.8 mg/dL (1.6-2.6); Potassium 3.8 mmol/L (3.5-5.1); Protein, Total 5.6 g/dL (5.8-8.1); Sodium 133 mmol/L (136-145)
[2021-02-02 04:54] LABS: Band 34 % (5-11); Hemoglobin 9.5 g/dL (14.0-18.0); Hypochromia SLIGHT = 6-15 cells (100X) (0-5/hpf); Lymphocytes 1 % (21-51); MDiff Complete? YES; Mean Corpuscular HGB CONC 32.5 g/dL (32.0-36.0); Mean Platelet Volume 7.8 fL (7.4-10.4); Monocytes 2 % (0-10); Neutrophil 63 % (42-75); Platelet Count 274 thou/uL (130-400); Platelet Morphology Comment Appears Adequate; RBC Distribution Width 18.5 % (11.5-14.5); Red Blood Cell (RBC) Count 2.89 mill/uL (4.70-6.10); White Blood Cell (WBC) Count 20.3 thou/uL (4.8-10.8)
[2021-02-02] MEDS: Insulin Regular 300 UNITS/3 ML VIAL SC PRN ×3 (06:08→21:21)
[2021-02-02] MEDS ORDERED: Enoxaparin Sodium 40 MG/0.4 ML SYRINGE SC SCH (09:00)
[2021-02-02] MEDS ORDERED: Digoxin 0.5 MG/2 ML AMP SLOW IVP SCH (09:00)
[2021-02-02] MEDS: Warfarin Sodium 5 MG TAB PO SCH ×2 (16:53→18:07)
[2021-02-02] MEDS: Fluticasone Propionate Nasal Spray 16 gm Bottle NASAL SCH (21:16)
[2021-02-02] MEDS: Atorvastatin Calcium 40 MG TAB PO SCH (21:16)
[2021-02-03] MEDS: Sodium Chloride 0.9% 1,000 ML IV SCH (02:32)
[2021-02-03] MEDS: Nitroglycerin 0.4 MG TAB (25 Tab Bottle) SL PRN ×3 (03:10→03:21)
[2021-02-03] MEDS: Vancomycin 1 GM in Premix Bag 1 BAG IVPB SCH ×2 (03:12→15:02)
[2021-02-03 03:44] LABS: #Eosinphils 0.2 thou/uL (0.0-0.7); #Monocytes 0.7 thou/uL (0.11-0.59); #Neutrophils 10.6 thou/uL (1.40-6.50); %Basophils 0.4 % (0.0-1.0); %Eosinophils 1.5 % (0.0-10.0); %Lymphocytes 7.7 % (21.0-51.0); %Monocytes 5.2 % (0.0-10.0); %Neutrophils 85.2 % (42.0-75.0); Hemoglobin 9.1 g/dL (14.0-18.0); Mean Corpuscular HGB CONC 34.2 g/dL (32.0-36.0); Mean Corpuscular Hemoglobin 34.9 pg (27.0-31.0); Mean Platelet Volume 7.7 fL (7.4-10.4); Platelet Count 227 thou/uL (130-400); RBC Distribution Width 18.3 % (11.5-14.5); Red Blood Cell (RBC) Count 2.61 mill/uL (4.70-6.10); White Blood Cell (WBC) Count 12.4 thou/uL (4.8-10.8)
[2021-02-03 03:55] LABS: INR-International Normal Ratio 1.6; Prothrombin Time 19.1 sec (12.0-14.7)
[2021-02-03 04:11] LABS: ALT (SGPT) 52 U/L (8-55); AST (SGOT) 64 U/L (5-34); Alkaline Phosphatase 364 U/L (40-110); Anion Gap 10 mmol/L (10-20); BUN (Urea Nitrogen) 17 mg/dL (8.4-25.7); Bilirubin, Total 4.5 mg/dL (0.2-1.2); Calc. Creatinine Clearance 89 mL/min (70-130); Calcium 7.7 mg/dL (7.8-10.44); Carbon Dioxide 24 mmol/L (23-31); Chloride 105 mmol/L (98-107); Globulin 2.9 g/dL (2.4-3.5); Glucose 109 mg/dL (83-110); Potassium 3.5 mmol/L (3.5-5.1); Protein, Total 4.9 g/dL (5.8-8.1); Sodium 135 mmol/L (136-145)
[2021-02-03] MEDS: MEROPENEM 1 GM/50 ML 1 GM in Premix Bag 1 BAG IVPB SCH ×3 (05:06→21:11)
[2021-02-03] MEDS: Levothyroxine Sodium 75 MCG TAB PO SCH (05:06)
[2021-02-03] MEDS: Calcium Carbonate 500 MG ChewTAB PO SCH ×2 (08:59→20:57)
[2021-02-03] MEDS: Pioglitazone HCl 15 MG TAB PO SCH (09:00)
[2021-02-03] MEDS: Ezetimibe 10 MG TAB PO SCH (09:01)
[2021-02-03] MEDS: Aspirin Chewable 81 MG TAB PO SCH (09:01)
[2021-02-03] MEDS: Digoxin 0.25 MG TAB PO SCH (09:01)
[2021-02-03] MEDS: Alogliptin 25 MG TAB PO SCH (09:02)
[2021-02-03] MEDS: Fluticasone Propionate Nasal Spray 16 gm Bottle NASAL SCH ×2 (09:07→20:58)
[2021-02-03] MEDS: Albumin 25% 25 GM/100 ML BOT IVPB SCH ×3 (09:26→20:57)
[2021-02-03] MEDS: Atorvastatin Calcium 40 MG TAB PO SCH (20:57)
[2021-02-04] MEDS: Albumin 25% 25 GM/100 ML BOT IVPB SCH (02:49)
[2021-02-04] MEDS: Vancomycin 1 GM in Premix Bag 1 BAG IVPB SCH ×2 (03:18→17:02)
[2021-02-04 03:57] LABS: #Eosinphils 0.1 thou/uL (0.0-0.7); #Lymphocytes 0.8 thou/uL (1.20-3.40); #Monocytes 0.4 thou/uL (0.11-0.59); #Neutrophils 5.1 thou/uL (1.40-6.50); %Basophils 0.7 % (0.0-1.0); %Eosinophils 1.9 % (0.0-10.0); %Monocytes 6.4 % (0.0-10.0); Mean Corpuscular HGB CONC 32.6 g/dL (32.0-36.0); Mean Corpuscular Hemoglobin 33.4 pg (27.0-31.0); Mean Platelet Volume 7.8 fL (7.4-10.4); Platelet Count 222 thou/uL (130-400); RBC Distribution Width 17.8 % (11.5-14.5); Red Blood Cell (RBC) Count 2.69 mill/uL (4.70-6.10); White Blood Cell (WBC) Count 6.5 thou/uL (4.8-10.8)
[2021-02-04 04:15] LABS: Anion Gap 10 mmol/L (10-20); BUN (Urea Nitrogen) 15 mg/dL (8.4-25.7); Calc. Creatinine Clearance 87 mL/min (70-130); Calcium 8.3 mg/dL (7.8-10.44); Carbon Dioxide 25 mmol/L (23-31); Chloride 104 mmol/L (98-107); Glucose 110 mg/dL (83-110); Potassium 3.7 mmol/L (3.5-5.1); Sodium 135 mmol/L (136-145)
[2021-02-04 04:18] LABS: INR-International Normal Ratio 1.3; Prothrombin Time 16.1 sec (12.0-14.7)
[2021-02-04] MEDS: Levothyroxine Sodium 75 MCG TAB PO SCH (05:35)
[2021-02-04] MEDS: MEROPENEM 1 GM/50 ML 1 GM in Premix Bag 1 BAG IVPB SCH ×3 (05:35→21:10)
[2021-02-04] MEDS: Alogliptin 25 MG TAB PO SCH (09:57)
[2021-02-04] MEDS: Fluticasone Propionate Nasal Spray 16 gm Bottle NASAL SCH ×2 (09:57→22:27)
[2021-02-04] MEDS: Pioglitazone HCl 15 MG TAB PO SCH (09:57)
[2021-02-04] MEDS: Ezetimibe 10 MG TAB PO SCH (09:58)
[2021-02-04] MEDS: Calcium Carbonate 500 MG ChewTAB PO SCH ×2 (09:58→21:05)
[2021-02-04] MEDS: Aspirin Chewable 81 MG TAB PO SCH (09:58)
[2021-02-04] MEDS: Digoxin 0.25 MG TAB PO SCH (09:58)
[2021-02-04] MEDS: Atorvastatin Calcium 40 MG TAB PO SCH (21:05)
[2021-02-05] MEDS: Vancomycin 1 GM in Premix Bag 1 BAG IVPB SCH ×2 (04:10→16:45)
[2021-02-05] MEDS: Levothyroxine Sodium 75 MCG TAB PO SCH (04:11)
[2021-02-05 06:17] LABS: INR-International Normal Ratio 1.2; Prothrombin Time 15.7 sec (12.0-14.7)
[2021-02-05] MEDS: MEROPENEM 1 GM/50 ML 1 GM in Premix Bag 1 BAG IVPB SCH ×3 (06:26→21:30)
[2021-02-05] MEDS: Alogliptin 25 MG TAB PO SCH (08:54)
[2021-02-05] MEDS: Ezetimibe 10 MG TAB PO SCH (08:54)
[2021-02-05] MEDS: Pioglitazone HCl 15 MG TAB PO SCH (08:54)
[2021-02-05] MEDS: Digoxin 0.25 MG TAB PO SCH (08:54)
[2021-02-05] MEDS: Calcium Carbonate 500 MG ChewTAB PO SCH ×2 (08:54→20:26)
[2021-02-05] MEDS: Aspirin Chewable 81 MG TAB PO SCH (08:55)
[2021-02-05] MEDS: Fluticasone Propionate Nasal Spray 16 gm Bottle NASAL SCH ×2 (08:58→20:27)
[2021-02-05 14:02] VITALS: BMI 24.5
[2021-02-05] MEDS: Insulin Regular 300 UNITS/3 ML VIAL SC PRN (14:43)
[2021-02-05] MEDS: Atorvastatin Calcium 40 MG TAB PO SCH (20:26)
[2021-02-06 04:15] LABS: #Eosinphils 0.2 thou/uL (0.0-0.7); #Lymphocytes 0.9 thou/uL (1.20-3.40); #Monocytes 0.4 thou/uL (0.11-0.59); %Eosinophils 4.7 % (0.0-10.0); %Lymphocytes 19.6 % (21.0-51.0); %Monocytes 8.9 % (0.0-10.0); %Neutrophils 65.7 % (42.0-75.0); Hemoglobin 9.8 g/dL (14.0-18.0); Mean Corpuscular HGB CONC 33.6 g/dL (32.0-36.0); Mean Corpuscular Hemoglobin 34.1 pg (27.0-31.0); Mean Platelet Volume 7.5 fL (7.4-10.4); Platelet Count 206 thou/uL (130-400); RBC Distribution Width 17.6 % (11.5-14.5); Red Blood Cell (RBC) Count 2.87 mill/uL (4.70-6.10); White Blood Cell (WBC) Count 4.5 thou/uL (4.8-10.8)
[2021-02-06 04:29] LABS: INR-International Normal Ratio 1.2; Prothrombin Time 15.5 sec (12.0-14.7)
[2021-02-06 04:39] LABS: ALT (SGPT) 36 U/L (8-55); AST (SGOT) 42 U/L (5-34); Albumin 2.6 g/dL (3.4-4.8); Alkaline Phosphatase 281 U/L (40-110); Anion Gap 8 mmol/L (10-20); BUN (Urea Nitrogen) 11 mg/dL (8.4-25.7); Bilirubin, Total 3.8 mg/dL (0.2-1.2); Calc. Creatinine Clearance 97 mL/min (70-130); Calcium 8.7 mg/dL (7.8-10.44); Carbon Dioxide 30 mmol/L (23-31); Chloride 104 mmol/L (98-107); Globulin 2.8 g/dL (2.4-3.5); Glucose 103 mg/dL (83-110); Potassium 3.9 mmol/L (3.5-5.1); Protein, Total 5.4 g/dL (5.8-8.1); Sodium 138 mmol/L (136-145)
[2021-02-06] MEDS: Levothyroxine Sodium 75 MCG TAB PO SCH (05:32)
[2021-02-06] MEDS: MEROPENEM 1 GM/50 ML 1 GM in Premix Bag 1 BAG IVPB SCH ×3 (05:33→21:14)
[2021-02-06 08:34] LABS: ALT (SGPT) 35 U/L (8-55); AST (SGOT) 41 U/L (5-34); Albumin 2.8 g/dL (3.4-4.8); Alkaline Phosphatase 289 U/L (40-110); Anion Gap 7 mmol/L (10-20); BUN (Urea Nitrogen) 9 mg/dL (8.4-25.7); Bilirubin, Total 3.9 mg/dL (0.2-1.2); Calc. Creatinine Clearance 97 mL/min (70-130); Calcium 8.6 mg/dL (7.8-10.44); Carbon Dioxide 31 mmol/L (23-31); Chloride 104 mmol/L (98-107); Globulin 2.7 g/dL (2.4-3.5); Glucose 106 mg/dL (83-110); Protein, Total 5.5 g/dL (5.8-8.1); Sodium 138 mmol/L (136-145)
[2021-02-06] MEDS: Digoxin 0.25 MG TAB PO SCH (08:50)
[2021-02-06] MEDS: Aspirin Chewable 81 MG TAB PO SCH (08:50)
[2021-02-06] MEDS: Pioglitazone HCl 15 MG TAB PO SCH (08:51)
[2021-02-06] MEDS: Ezetimibe 10 MG TAB PO SCH (08:51)
[2021-02-06] MEDS: Calcium Carbonate 500 MG ChewTAB PO SCH ×2 (08:52→21:12)
[2021-02-06] MEDS: Fluticasone Propionate Nasal Spray 16 gm Bottle NASAL SCH ×2 (08:52→21:37)
[2021-02-06] MEDS: Alogliptin 25 MG TAB PO SCH ×2 (08:52→21:36)
[2021-02-06] MEDS: Insulin Regular 300 UNITS/3 ML VIAL SC PRN (17:40)
[2021-02-06] MEDS ORDERED: Enoxaparin Sodium 30 MG/0.3 ML SYRINGE SC SCH (21:00)
[2021-02-06] MEDS: Atorvastatin Calcium 40 MG TAB PO SCH (21:12)
[2021-02-06] MEDS ORDERED: Alogliptin 25 MG TAB PO SCH (21:30)
[2021-02-07] MEDS: Levothyroxine Sodium 75 MCG TAB PO SCH (05:58)
[2021-02-07] MEDS: MEROPENEM 1 GM/50 ML 1 GM in Premix Bag 1 BAG IVPB SCH ×2 (05:58→15:34)
[2021-02-07 06:30] LABS: INR-International Normal Ratio 1.2; Prothrombin Time 15.6 sec (12.0-14.7)
[2021-02-07] MEDS: Digoxin 0.25 MG TAB PO SCH (08:54)
[2021-02-07] MEDS: Calcium Carbonate 500 MG ChewTAB PO SCH (08:55)
[2021-02-07] MEDS: Ezetimibe 10 MG TAB PO SCH (08:55)
[2021-02-07] MEDS: Aspirin Chewable 81 MG TAB PO SCH (08:55)
[2021-02-07] MEDS: Pioglitazone HCl 15 MG TAB PO SCH (08:55)
[2021-02-07] MEDS: Fluticasone Propionate Nasal Spray 16 gm Bottle NASAL SCH (08:56)
[2021-02-07] MEDS: Insulin Regular 300 UNITS/3 ML VIAL SC PRN (16:34)
[2021-02-07 17:02] VITALS: BP 145/65; TEMP 98.1
[2021-02-07] MEDS ORDERED: Alogliptin 25 MG TAB PO SCH (21:00)
== END 2021-02-07 18:52 | disposition short-term general hospital (02) | DRG 871 ==
LOC: ERS 14:49 → CCU 18:19 → IMCU/EMU 02-03 10:28 → SURG B 02-04 10:47
PROVIDERS: ADMIT Specialist; ATTEND Specialist
PROC: 06HY33Z Insertion of Infusion Device into Lower Vein, Percutaneous Approach (ICD-10-PCS; principal; 2021-02-01)
PROC: 3E033XZ Introduction of Vasopressor into Peripheral Vein, Percutaneous Approach (ICD-10-PCS; 2021-02-01)
DX: A41.51 Sepsis due to Escherichia coli [E. coli] (principal); R65.21 Severe sepsis with septic shock; D68.9 Coagulation defect, unspecified; K83.09 Other cholangitis; I48.20 Chronic atrial fibrillation, unspecified; Z20.822 Contact with and (suspected) exposure to COVID-19; I34.0 Nonrheumatic mitral (valve) insufficiency; E11.9 Type 2 diabetes mellitus without complications; K21.9 Gastro-esophageal reflux disease without esophagitis; E78.5 Hyperlipidemia, unspecified; E78.00 Pure hypercholesterolemia, unspecified; E03.9 Hypothyroidism, unspecified; K86.89 Other specified diseases of pancreas; A41.81 Sepsis due to Enterococcus; A41.59 Other Gram-negative sepsis; Z95.0 Presence of cardiac pacemaker; Z85.828 Personal history of other malignant neoplasm of skin; Z90.49 Acquired absence of other specified parts of digestive tract; Z79.01 Long term (current) use of anticoagulants; Z79.84 Long term (current) use of oral hypoglycemic drugs; Z79.82 Long term (current) use of aspirin; Z79.899 Other long term (current) drug therapy
CPT/HCPCS: 36415; 36416; 71045; 71275; 74177; 80048; 80053; 82140; 82553; 83605; 83690; 83735; 84443; 84484; 85025; 85610; 85730; 86850; 86900; 86901; 87040; 87077; 87149; 87186; 93005; 96365; 96366; 96367; 96375; C9113; J0696; J1160; J1642; J1650; J1815; J2060; J2185; J3370; P9047; U0002; U0005

== ENCOUNTER 2021-03-13 12:07 | Outpatient (CLI) | payer MEDICARE ==
[~2021-03-13 12:07] MED LIST changes: +Iopamidol-370 76% 500 ML 1 ML ONE; -Ketorolac Tromethamine 30 MG/ML VIAL ONE; -Lidocaine 1% PF 5 ML VIAL ONE; -Ondansetron HCl/PF 4 MG/2 ML Vial ONE; -Propofol 200 MG/20 ML VIAL ONE
== END 2021-03-13 12:08 | disposition home or self-care (01) ==
LOC: BICCT 12:07
PROVIDERS: ATTEND Surgery Surgical Oncology
DX: C24.1 Malignant neoplasm of ampulla of Vater (principal); R59.0 Localized enlarged lymph nodes; I51.7 Cardiomegaly; J98.4 Other disorders of lung; J90 Pleural effusion, not elsewhere classified; Z96.89 Presence of other specified functional implants
CPT/HCPCS: 71260; 82565; Q9967

== ENCOUNTER 2021-05-20 08:31 | Outpatient (CLI) | payer MEDICARE ==
[2021-05-20 10:16] LABS: #Eosinphils 0.1 10x3/uL (0.0-0.5); #Monocytes 0.4 10x3/uL (0.0-1.1); #Neutrophils 2.7 10x3/uL (1.5-8.4); %Eosinophils 3.4 % (0.0-6.0); %Lymphocytes 19.8 % (18.0-47.0); %Monocytes 8.8 % (0.0-10.0); %Neutrophils 66.8 % (40.0-75.0); Hemoglobin 10.6 g/dL (13.5-17.5); Mean Corpuscular HGB CONC 31.9 g/dL (32.0-36.0); Mean Corpuscular Hemoglobin 28.4 pg (27.0-33.0); Platelet Count 196 10x3/uL (150-450); RBC Distribution Width 18.7 % (11.5-14.5); Red Blood Cell (RBC) Count 3.73 10x6/uL (4.32-5.72); White Blood Cell (WBC) Count 4.1 10x3/uL (3.5-10.5)
[2021-05-20 10:40] LABS: Anion Gap 14 mmol/L (10-20); BUN (Urea Nitrogen) 25 mg/dL (8.4-25.7); Calc. Creatinine Clearance 0 mL/min (70-130); Calcium 10.7 mg/dL (7.8-10.44); Carbon Dioxide 30 mmol/L (23-31); Chloride 100 mmol/L (98-107); Glucose 179 mg/dL (83-110); Potassium 4.5 mmol/L (3.5-5.1); Sodium 139 mmol/L (136-145)
[2021-05-20 19:03] LABS: SARS-CoV-2 PCR by NAA Not Detected (NotDetected)
== END 2021-05-20 08:32 | disposition home or self-care (01) ==
LOC: LABBT 08:31
PROVIDERS: ATTEND Surgery
DX: Z01.818 Encounter for other preprocedural examination (principal); C80.1 Malignant (primary) neoplasm, unspecified; Z20.822 Contact with and (suspected) exposure to COVID-19
CPT/HCPCS: 80048; 85025; 93005; U0003; U0005; 93010

== ENCOUNTER 2021-05-25 08:46 | Day surgery (SDC) | payer MEDICARE ==
[2021-05-25] MEDS ORDERED: Fentanyl 100 MCG/2 ML VIAL ONE (09:15)
[2021-05-25] MEDS ORDERED: Ketamine 50 MG/ML (10ML VIAL) ONE (09:28)
[2021-05-25] MEDS ORDERED: Propofol 1,000 MG/100 ML VIAL IV ONE (09:50)
[2021-05-25] MEDS ORDERED: Lidocaine 1% w/Epinephrine 1:100K 20 ML VIAL ONE (09:50)
[2021-05-25] MEDS ORDERED: Bupivacaine 0.25% HCL 30 ML VIAL ONE (09:50)
[2021-05-25] MEDS ORDERED: Lidocaine 1% PF 5 ML VIAL ONE (10:18)
[2021-05-25] MEDS ORDERED: Glycopyrrolate 0.2 MG/ML 5 ML SYRINGE ONE (10:18)
[2021-05-25] MEDS ORDERED: PHENYLEPHRINE-NS 100 MCG/ML 10 ML SYRINGE ONE ×2 (10:18→11:03)
[2021-05-25] MEDS ORDERED: PROPOFOL 200 MG/20 ML VIAL ONE (10:18)
[2021-05-25] MEDS ORDERED: Ondansetron PF 4 MG/2 ML Vial ONE (10:18)
[2021-05-25] MEDS ORDERED: Dexamethasone 20 MG/5 ML VIAL ONE (10:18)
== END 2021-05-25 13:30 | disposition home or self-care (01) ==
LOC: SDC 08:46
PROVIDERS: ATTEND Surgery
PROC: 0JH63WZ Insertion of Totally Implantable Vascular Access Device into Chest Subcutaneous Tissue and Fascia, Percutaneous Approach (ICD-10-PCS; principal; 2021-05-25)
PROC: 02HV33Z Insertion of Infusion Device into Superior Vena Cava, Percutaneous Approach (ICD-10-PCS; 2021-05-25)
DX: C76.0 Malignant neoplasm of head, face and neck (principal); E11.9 Type 2 diabetes mellitus without complications; I51.9 Heart disease, unspecified; I48.91 Unspecified atrial fibrillation
CPT/HCPCS: 36561; 71045; 82962; C1788; 36416; J0690; J1100; J1642; J2405; J2704; J3010; S0020

== ENCOUNTER 2021-08-14 08:51 | Day surgery (SDC) | payer MEDICARE ==
[2021-08-14] MEDS ORDERED: diphenhydrAMINE 25 MG CAP ONE (09:50)
[2021-08-14] MEDS ORDERED: Sodium Chloride 0.9% 10 ML ONE ×2 (09:50)
[2021-08-14] MEDS ORDERED: Acetaminophen 500 MG TAB ONE (09:50)
[2021-08-14 14:45] VITALS: BP 133/61; TEMP 97.9
== END 2021-08-14 14:47 | disposition home or self-care (01) ==
LOC: ONC/OP 08:51
PROVIDERS: ATTEND Internal Medicine Hematology & Oncology
PROC: 30233N1 Transfusion of Nonautologous Red Blood Cells into Peripheral Vein, Percutaneous Approach (ICD-10-PCS; principal; 2021-08-14)
DX: D64.81 Anemia due to antineoplastic chemotherapy (principal); T45.1X5A Adverse effect of antineoplastic and immunosuppressive drugs, initial encounter; C25.9 Malignant neoplasm of pancreas, unspecified; D69.6 Thrombocytopenia, unspecified; E89.1 Postprocedural hypoinsulinemia; E13.9 Other specified diabetes mellitus without complications; E89.0 Postprocedural hypothyroidism; I25.10 Atherosclerotic heart disease of native coronary artery without angina pectoris; I48.91 Unspecified atrial fibrillation; E46 Unspecified protein-calorie malnutrition; Z77.22 Contact with and (suspected) exposure to environmental tobacco smoke (acute) (chronic); Z95.0 Presence of cardiac pacemaker; Z90.411 Acquired partial absence of pancreas
CPT/HCPCS: 36430; 86850; 86900; 86901; P9016

== ENCOUNTER 2021-09-16 12:23 | Day surgery (SDC) | payer MEDICARE ==
[2021-09-16] MEDS ORDERED: diphenhydrAMINE 25 MG CAP PO SCH (12:45)
[2021-09-16] MEDS ORDERED: Acetaminophen 500 MG TAB PO SCH (12:45)
[2021-09-16] MEDS ORDERED: Sodium Chloride 0.9% 10 ML ONE (12:53)
[2021-09-16] MEDS ORDERED: Acetaminophen 500 MG TAB ONE (12:53)
[2021-09-16] MEDS ORDERED: diphenhydrAMINE 25 MG CAP ONE (12:53)
[2021-09-16 15:40] VITALS: BP 133/60; TEMP 98.2
== END 2021-09-16 15:40 | disposition home or self-care (01) ==
LOC: ONC/OP 12:23
PROVIDERS: ATTEND Internal Medicine Hematology & Oncology
PROC: 30233N1 Transfusion of Nonautologous Red Blood Cells into Peripheral Vein, Percutaneous Approach (ICD-10-PCS; principal; 2021-09-16)
DX: D64.9 Anemia, unspecified (principal); D69.6 Thrombocytopenia, unspecified
CPT/HCPCS: 36430; 86850; 86900; 86901; J1642; P9016

== ENCOUNTER 2021-10-13 10:47 | Day surgery (SDC) | payer MEDICARE ==
[2021-10-13] MEDS ORDERED: Sodium Chloride 0.9% 10 ML ONE (11:06)
[2021-10-13] MEDS ORDERED: diphenhydrAMINE 25 MG CAP PO SCH (11:15)
[2021-10-13] MEDS ORDERED: Acetaminophen 500 MG TAB PO SCH (11:15)
[2021-10-13] MEDS ORDERED: diphenhydrAMINE 25 MG CAP ONE (11:21)
[2021-10-13] MEDS ORDERED: Acetaminophen 500 MG TAB ONE (11:22)
[2021-10-13 14:03] VITALS: BP 115/57; TEMP 98
== END 2021-10-13 14:05 | disposition home or self-care (01) ==
LOC: ONC/OP 10:47
PROVIDERS: ATTEND Internal Medicine Hematology & Oncology
PROC: 30233N1 Transfusion of Nonautologous Red Blood Cells into Peripheral Vein, Percutaneous Approach (ICD-10-PCS; principal; 2021-10-13)
DX: D64.9 Anemia, unspecified (principal); D69.6 Thrombocytopenia, unspecified
CPT/HCPCS: 36430; 86850; 86900; 86901; J1642; P9016

== ENCOUNTER 2022-01-05 13:10 | Inpatient (IN) | payer MEDICARE ==
[2022-01-05 14:02] LABS: #Lymphocytes 0.3 thou/uL (1.20-3.40); #Monocytes 0.2 thou/uL (0.11-0.59); #Neutrophils 6.1 thou/uL (1.40-6.50); %Eosinophils 0.5 % (0.0-10.0); %Lymphocytes 3.8 % (21.0-51.0); %Monocytes 2.5 % (0.0-10.0); %Neutrophils 93.3 % (42.0-75.0); Hemoglobin 11.5 g/dL (14.0-18.0); Mean Corpuscular HGB CONC 32.7 g/dL (32.0-36.0); Mean Corpuscular Hemoglobin 33.1 pg (27.0-31.0); Mean Platelet Volume 6.9 fL (7.4-10.4); Platelet Count 182 thou/uL (130-400); RBC Distribution Width 15.7 % (11.5-14.5); Red Blood Cell (RBC) Count 3.47 mill/uL (4.70-6.10); White Blood Cell (WBC) Count 6.6 thou/uL (4.8-10.8)
[2022-01-05 14:21] LABS: ALT (SGPT) 26 U/L (8-55); AST (SGOT) 28 U/L (5-34); Albumin 3.6 g/dL (3.4-4.8); Alkaline Phosphatase 209 U/L (40-110); Anion Gap 15 mmol/L (10-20); BUN (Urea Nitrogen) 26 mg/dL (8.4-25.7); Bilirubin, Total 0.8 mg/dL (0.2-1.2); Calc. Creatinine Clearance 0 mL/min (70-130); Calcium 9.5 mg/dL (7.8-10.44); Carbon Dioxide 25 mmol/L (23-31); Chloride 97 mmol/L (98-107); Globulin 3.7 g/dL (2.4-3.5); Glucose 215 mg/dL (83-110); Potassium 4.4 mmol/L (3.5-5.1); Protein, Total 7.3 g/dL (5.8-8.1); Sodium 133 mmol/L (136-145)
[2022-01-05 15:34] LABS: Bacteria/HPF None Seen HPF (None Seen); Bilirubin Negative (Negative); Blood, Urine Trace (Negative); Clarity Clear (Clear); Glucose, Urine (Dipstick) Normal (Negative); Ketone, Urine Negative (Negative); Leukocyte Negative Leu/uL (Negative); Nitrite Negative (Negative); Protein, Urine (Dipstick) Negative (Neg-Trace); RBC/HPF 0-3 HPF (0-3); Specific Gravity, Urine 1.012 (1.002-1.036); Squamous Epithelial None Seen HPF (0-3); Urobilinogen Normal mg/dL (Less than 2); WBC/HPF 0-3 HPF (0-3)
[2022-01-05] MEDS ORDERED: cefTRIAXone\\ROCEPHIN 2 GM VIAL ONE (16:34)
[2022-01-05] MEDS ORDERED: Vancomycin 1 GM/200 ML BAG ONE (17:08)
[2022-01-05 18:18] VITALS: BMI 19.5
[2022-01-05] MEDS ORDERED: Dextrose 50% Abboject 50 ML SYRINGE IVP PRN (20:00)
[2022-01-05] MEDS ORDERED: Dextrose 5% in Water 1,000 ML IV PRN (20:00)
[2022-01-05] MEDS: Megestrol Acetate 40 MG TAB PO SCH (20:33)
[2022-01-05] MEDS: Apixaban 5 MG TAB PO SCH (20:33)
[2022-01-05] MEDS: Sodium Chloride 0.9% 1,000 ML IV SCH (20:37)
[2022-01-05] MEDS: traMADol HCl 50 MG TAB PO PRN (20:55)
[2022-01-06] MEDS: Levothyroxine Sodium 112 MCG TAB PO SCH (05:38)
[2022-01-06] MEDS: Vancomycin 1 GM in Premix Bag 1 BAG IVPB SCH ×2 (05:38→16:09)
[2022-01-06] MEDS: Sodium Chloride 0.9% 1,000 ML IV SCH (05:40)
[2022-01-06] MEDS ORDERED: Levothyroxine Sodium 75 MCG TAB PO SCH (06:00)
[2022-01-06 06:14] LABS: #Eosinphils 0.1 thou/uL (0.0-0.7); #Lymphocytes 1.1 thou/uL (1.20-3.40); #Monocytes 0.5 thou/uL (0.11-0.59); #Neutrophils 4.6 thou/uL (1.40-6.50); %Basophils 0.5 % (0.0-1.0); %Eosinophils 1.2 % (0.0-10.0); %Lymphocytes 18.1 % (21.0-51.0); %Monocytes 7.2 % (0.0-10.0); %Neutrophils 73.1 % (42.0-75.0); Hemoglobin 9.8 g/dL (14.0-18.0); Mean Corpuscular HGB CONC 32.1 g/dL (32.0-36.0); Mean Corpuscular Hemoglobin 32.8 pg (27.0-31.0); Platelet Count 159 thou/uL (130-400); RBC Distribution Width 15.6 % (11.5-14.5); White Blood Cell (WBC) Count 6.3 thou/uL (4.8-10.8)
[2022-01-06 06:41] LABS: Anion Gap 9 mmol/L (10-20); BUN (Urea Nitrogen) 24 mg/dL (8.4-25.7); Calc. Creatinine Clearance 69 mL/min (70-130); Calcium 8.9 mg/dL (7.8-10.44); Carbon Dioxide 29 mmol/L (23-31); Chloride 103 mmol/L (98-107); Glucose 123 mg/dL (83-110); Potassium 3.8 mmol/L (3.5-5.1); Sodium 137 mmol/L (136-145)
[2022-01-06] MEDS: Aspirin 81 mg Enteric Coated Tablet PO SCH (08:10)
[2022-01-06] MEDS: Metoprolol Tartrate 50 MG TAB PO SCH (08:10)
[2022-01-06] MEDS: Megestrol Acetate 40 MG TAB PO SCH ×2 (08:10→20:43)
[2022-01-06] MEDS: Digoxin 0.25 MG TAB PO SCH (08:10)
[2022-01-06] MEDS: Apixaban 5 MG TAB PO SCH ×2 (08:10→20:43)
[2022-01-06] MEDS: Insulin Regular 300 UNITS/3 ML VIAL SC PRN ×3 (11:39→20:47)
[2022-01-06 15:55] LABS: SARS-CoV-2 PCR by NAA Not Detected (NotDetected)
[2022-01-06] MEDS ORDERED: cefTRIAXone\\ROCEPHIN 2 GM in Sodium Chloride 0.9% 100 ML IVPB SCH (17:00)
[2022-01-06] MEDS: traMADol HCl 50 MG TAB PO PRN (22:08)
[2022-01-07] MEDS: Sodium Chloride 0.9% 1,000 ML IV SCH (01:30)
[2022-01-07] MEDS: Levothyroxine Sodium 112 MCG TAB PO SCH (05:38)
[2022-01-07] MEDS: Insulin Regular 300 UNITS/3 ML VIAL SC PRN (05:38)
[2022-01-07 05:49] LABS: #Eosinphils 0.1 thou/uL (0.0-0.7); #Monocytes 0.4 thou/uL (0.11-0.59); #Neutrophils 3.9 thou/uL (1.40-6.50); %Basophils 0.3 % (0.0-1.0); %Eosinophils 2.4 % (0.0-10.0); %Lymphocytes 18.1 % (21.0-51.0); %Monocytes 7.7 % (0.0-10.0); %Neutrophils 71.5 % (42.0-75.0); Mean Corpuscular HGB CONC 32.4 g/dL (32.0-36.0); Mean Platelet Volume 7.1 fL (7.4-10.4); Platelet Count 159 thou/uL (130-400); RBC Distribution Width 15.3 % (11.5-14.5); Red Blood Cell (RBC) Count 3.04 mill/uL (4.70-6.10); White Blood Cell (WBC) Count 5.5 thou/uL (4.8-10.8)
[2022-01-07 05:56] LABS: Hemoglobin A1c 6.5 % (4.0-6.0)
[2022-01-07 06:08] LABS: Anion Gap 9 mmol/L (10-20); BUN (Urea Nitrogen) 22 mg/dL (8.4-25.7); Calc. Creatinine Clearance 70 mL/min (70-130); Calcium 8.8 mg/dL (7.8-10.44); Carbon Dioxide 25 mmol/L (23-31); Chloride 105 mmol/L (98-107); Glucose 196 mg/dL (83-110); Sodium 135 mmol/L (136-145)
[2022-01-07 06:14] LABS: Vancomycin, Trough 13.4 ug/mL
[2022-01-07] MEDS: Vancomycin 1 GM in Premix Bag 1 BAG IVPB SCH (06:19)
[2022-01-07] MEDS: Digoxin 0.25 MG TAB PO SCH (08:16)
[2022-01-07] MEDS: Apixaban 5 MG TAB PO SCH (08:17)
[2022-01-07] MEDS: Metoprolol Tartrate 50 MG TAB PO SCH (08:18)
[2022-01-07] MEDS: Megestrol Acetate 40 MG TAB PO SCH (08:18)
[2022-01-07] MEDS: Aspirin 81 mg Enteric Coated Tablet PO SCH (08:21)
[2022-01-07 08:47] VITALS: BP 135/66; TEMP 97.4
[2022-01-07] MEDS ORDERED: Insulin Glargine 30 UNITS/0.3 ML VIAL SC SCH (09:00)
[2022-01-07] MEDS ORDERED: Vancomycin HCl 1.25 GM in Sodium Chloride 0.9% 250 ML 250 ML IVPB SCH (18:00)
== END 2022-01-07 11:15 | disposition home or self-care (01) | DRG 864 ==
LOC: ERS 13:10 → T4-B 16:27
PROVIDERS: ADMIT Specialist; ATTEND Specialist
DX: R50.9 Fever, unspecified (principal); G93.49 Other encephalopathy; E46 Unspecified protein-calorie malnutrition; Z68.1 Body mass index [BMI] 19.9 or less, adult; R64 Cachexia; D84.9 Immunodeficiency, unspecified; C24.1 Malignant neoplasm of ampulla of Vater; Z20.822 Contact with and (suspected) exposure to COVID-19; F03.90 Unspecified dementia, unspecified severity, without behavioral disturbance, psychotic disturbance, mood disturbance, and anxiety; I48.91 Unspecified atrial fibrillation; K21.9 Gastro-esophageal reflux disease without esophagitis; N40.0 Benign prostatic hyperplasia without lower urinary tract symptoms; E03.9 Hypothyroidism, unspecified; E86.0 Dehydration; I25.10 Atherosclerotic heart disease of native coronary artery without angina pectoris; Z90.49 Acquired absence of other specified parts of digestive tract; Z79.899 Other long term (current) drug therapy; Z79.01 Long term (current) use of anticoagulants; Z79.82 Long term (current) use of aspirin; Z79.890 Hormone replacement therapy; Z85.07 Personal history of malignant neoplasm of pancreas
CPT/HCPCS: 36415; 36416; 71045; 71046; 80048; 80053; 80202; 81003; 81015; 83036; 83690; 84443; 85025; 87040; 87086; 87804; J0696; J1815; J3370; J3490; J7050; S0179; U0003; U0005

== ENCOUNTER 2022-01-14 04:35 | Observation (INO) | payer MEDICARE ==
[2022-01-14] MEDS ORDERED: Cefepime 2 GM VIAL ONE (04:51)
[2022-01-14 05:25] LABS: #Lymphocytes 0.3 thou/uL (1.20-3.40); #Monocytes 0.8 thou/uL (0.11-0.59); #Neutrophils 9.6 thou/uL (1.40-6.50); %Eosinophils 0.2 % (0.0-10.0); %Lymphocytes 2.5 % (21.0-51.0); %Monocytes 7.5 % (0.0-10.0); %Neutrophils 89.9 % (42.0-75.0); Hemoglobin 11.3 g/dL (14.0-18.0); Mean Corpuscular HGB CONC 32.5 g/dL (32.0-36.0); Mean Corpuscular Hemoglobin 32.5 pg (27.0-31.0); Mean Corpuscular Volume 99.8 fL (78.0-98.0); Mean Platelet Volume 6.4 fL (7.4-10.4); Platelet Count 247 thou/uL (130-400); RBC Distribution Width 15.9 % (11.5-14.5); Red Blood Cell (RBC) Count 3.49 mill/uL (4.70-6.10); White Blood Cell (WBC) Count 10.7 thou/uL (4.8-10.8)
[2022-01-14 05:47] LABS: ALT (SGPT) 54 U/L (8-55); AST (SGOT) 60 U/L (5-34); Albumin 4.1 g/dL (3.4-4.8); Alkaline Phosphatase 199 U/L (40-110); Anion Gap 15 mmol/L (10-20); BUN (Urea Nitrogen) 28 mg/dL (8.4-25.7); Bilirubin, Total 1.2 mg/dL (0.2-1.2); Calc. Creatinine Clearance 0 mL/min (70-130); Calcium 9.8 mg/dL (7.8-10.44); Carbon Dioxide 24 mmol/L (23-31); Chloride 99 mmol/L (98-107); Globulin 3.8 g/dL (2.4-3.5); Glucose 111 mg/dL (83-110); Potassium 4.5 mmol/L (3.5-5.1); Protein, Total 7.9 g/dL (5.8-8.1); Sodium 133 mmol/L (136-145)
[2022-01-14 05:48] LABS: SARS-CoV-2 NAA Rapid Test Not Detected (NotDetected)
[2022-01-14 06:15] LABS: CKMB 2.7 ng/mL (0-6.6)
[2022-01-14] MEDS ORDERED: Aspirin Chewable 81 MG TAB ONE (06:28)
[2022-01-14 08:39] LABS: Bacteria/HPF None Seen HPF (None Seen); Bilirubin Negative (Negative); Blood, Urine Negative (Negative); Clarity Clear (Clear); Glucose, Urine (Dipstick) Normal (Negative); Ketone, Urine Negative (Negative); Leukocyte Negative Leu/uL (Negative); Nitrite Negative (Negative); Protein, Urine (Dipstick) 10 mg/dL (Neg-Trace); Squamous Epithelial None Seen HPF (0-3); Urobilinogen Normal mg/dL (Less than 2); WBC/HPF 0-3 HPF (0-3); pH, Urine 6.5 (5.0-9.0)
[2022-01-14] MEDS ORDERED: Ondansetron ODT 4 MG TAB PO PRN (10:14)
[2022-01-14] MEDS ORDERED: Ondansetron PF 4 MG/2 ML Vial IVP PRN (10:14)
[2022-01-14 10:36] LABS: Troponin I 0.092 ng/mL (< 0.028)
[2022-01-14 10:43] VITALS: BMI 19.8
[2022-01-14 12:53] LABS: Troponin I 0.095 ng/mL (< 0.028)
[2022-01-14] MEDS ORDERED: traMADol HCl 50 MG TAB PO PRN (17:41)
[2022-01-14] MEDS ORDERED: Dextrose 5% in Water 1,000 ML IV PRN (17:45)
[2022-01-14] MEDS: Sodium Chloride 0.9% 1,000 ML IV SCH (17:54)
[2022-01-14] MEDS: Insulin Regular 300 UNITS/3 ML VIAL SC PRN (21:10)
[2022-01-14] MEDS: Icosapent Ethyl 1 GM CAPSULE PO SCH (21:11)
[2022-01-14] MEDS: Apixaban 5 MG TAB PO SCH (21:11)
[2022-01-14] MEDS: Megestrol Acetate 40 MG TAB PO SCH (21:13)
[2022-01-15] MEDS: Sodium Chloride 0.9% 1,000 ML IV SCH ×3 (03:30→10:17)
[2022-01-15 05:28] LABS: #Eosinphils 0.1 thou/uL (0.0-0.7); #Monocytes 0.4 thou/uL (0.11-0.59); #Neutrophils 3.8 thou/uL (1.40-6.50); %Basophils 0.8 % (0.0-1.0); %Lymphocytes 18.1 % (21.0-51.0); %Monocytes 8.1 % (0.0-10.0); %Neutrophils 71.1 % (42.0-75.0); Hemoglobin 9.2 g/dL (14.0-18.0); Mean Corpuscular HGB CONC 32.4 g/dL (32.0-36.0); Mean Corpuscular Hemoglobin 32.7 pg (27.0-31.0); Mean Platelet Volume 7.1 fL (7.4-10.4); Platelet Count 202 thou/uL (130-400); RBC Distribution Width 15.7 % (11.5-14.5); White Blood Cell (WBC) Count 5.4 thou/uL (4.8-10.8)
[2022-01-15 05:48] LABS: Digoxin 0.88 ng/mL (0.8-2.0)
[2022-01-15 05:51] LABS: Anion Gap 10 mmol/L (10-20); BUN (Urea Nitrogen) 18 mg/dL (8.4-25.7); Calc. Creatinine Clearance 71 mL/min (70-130); Calcium 8.7 mg/dL (7.8-10.44); Carbon Dioxide 24 mmol/L (23-31); Chloride 105 mmol/L (98-107); Glucose 166 mg/dL (83-110); Potassium 3.9 mmol/L (3.5-5.1); Sodium 135 mmol/L (136-145)
[2022-01-15] MEDS ORDERED: Levothyroxine Sodium 112 MCG TAB PO SCH (06:00)
[2022-01-15] MEDS ORDERED: Levothyroxine Sodium 25 MCG TAB PO SCH (06:00)
[2022-01-15] MEDS: Insulin Regular 300 UNITS/3 ML VIAL SC PRN (07:10)
[2022-01-15 08:17] VITALS: BP 153/75; TEMP 97.8
[2022-01-15] MEDS ORDERED: Insulin Glargine 30 UNITS/0.3 ML VIAL SC SCH (09:00)
[2022-01-15] MEDS ORDERED: Finasteride 5 MG TAB PO SCH (09:00)
[2022-01-15] MEDS ORDERED: Pioglitazone HCl 15 MG TAB PO SCH (09:00)
[2022-01-15] MEDS: Apixaban 5 MG TAB PO SCH (09:20)
[2022-01-15] MEDS: Icosapent Ethyl 1 GM CAPSULE PO SCH (09:21)
[2022-01-15] MEDS: Megestrol Acetate 40 MG TAB PO SCH (09:23)
== END 2022-01-15 10:12 | disposition home or self-care (01) ==
LOC: ERS 04:35 → 2SW 09:15
PROVIDERS: ADMIT Specialist; ATTEND Specialist
DX: I95.2 Hypotension due to drugs (principal); T50.995A Adverse effect of other drugs, medicaments and biological substances, initial encounter; E86.0 Dehydration; I95.1 Orthostatic hypotension; C24.1 Malignant neoplasm of ampulla of Vater; E11.9 Type 2 diabetes mellitus without complications; I48.91 Unspecified atrial fibrillation; K21.9 Gastro-esophageal reflux disease without esophagitis; E78.5 Hyperlipidemia, unspecified; N40.0 Benign prostatic hyperplasia without lower urinary tract symptoms; E03.9 Hypothyroidism, unspecified; I45.10 Unspecified right bundle-branch block; M19.071 Primary osteoarthritis, right ankle and foot; M21.41 Flat foot [pes planus] (acquired), right foot; E46 Unspecified protein-calorie malnutrition; Z68.1 Body mass index [BMI] 19.9 or less, adult; Z79.01 Long term (current) use of anticoagulants; Z79.4 Long term (current) use of insulin; Z79.82 Long term (current) use of aspirin; Z79.84 Long term (current) use of oral hypoglycemic drugs; Z79.890 Hormone replacement therapy; Z79.899 Other long term (current) drug therapy; Z95.0 Presence of cardiac pacemaker; Z20.822 Contact with and (suspected) exposure to COVID-19
CPT/HCPCS: 0240U; 70450; 71045; 73630; 80048; 80053; 80162; 81003; 82533; 82553; 82962 ×2; 83605; 84443; 84484 ×2; 85025 ×2; 87040; 87086; 93005; 36415; 36416; 96361; G0378; J0692; J1815; J7050; S0179

== ENCOUNTER 2022-03-03 11:50 | Inpatient (IN) | payer MEDICARE ==
[2022-03-03 13:03] LABS: Actual Bicarbonate (HCO3v) 24 mEq/L (22-28); Analyzer IN Cardio ER; Base Excess -1.2 mEq/L (-2.0 to +3.0); Calcium, Ionized (venous) 1.18 mmol/L (1.16-1.32); Chloride (VBG) 99 mmol/L (98-106); Hemoglobin 12.2 g/dL (14.0-18.0); Hemoglobin (Hb) 12.4 g/dL (12.6-17.4); Mean Corpuscular HGB CONC 31.4 g/dL (32.0-36.0); Mean Corpuscular Hemoglobin 31.7 pg (27.0-31.0); Mean Platelet Volume 7.4 fL (7.4-10.4); Platelet Count 250 thou/uL (130-400); Potassium (VBG) 5.65 mmol/L (3.70-5.30); RBC Distribution Width 15.6 % (11.5-14.5); Red Blood Cell (RBC) Count 3.85 mill/uL (4.70-6.10); Sodium 132.1 mmol/L (133-146); White Blood Cell (WBC) Count 18.6 thou/uL (4.8-10.8); pH (venous) 7.36 (7.32-7.43)
[2022-03-03 13:14] LABS: INR-International Normal Ratio 1.3; PTT 35.4 sec (22.9-36.1); Prothrombin Time 16.2 sec (12.0-14.7)
[2022-03-03 13:24] LABS: Anisocytosis SLIGHT = 6-15 cells (100X) (0-5/hpf); Band 23 % (5-11); Lymphocytes 5 % (21-51); MDiff Complete? YES; Macrocytosis SLIGHT = 6-15 cells (100X) (0-5/hpf); Metamyelocyte 6 % (0-0); Monocytes 1 % (0-10); Neutrophil 65 % (42-75); Platelet Morphology Comment Appears Adequate; Polychromasia SLIGHT = 2-3 cells (100X) (0-2/hpf); Vacuoles SLIGHT
[2022-03-03 13:30] LABS: Digoxin 1.69 ng/mL (0.8-2.0)
[2022-03-03 13:31] LABS: ALT (SGPT) 86 U/L (8-55); AST (SGOT) 129 U/L (5-34); Albumin 3.7 g/dL (3.4-4.8); Alkaline Phosphatase 266 U/L (40-110); Anion Gap 19 mmol/L (10-20); BUN (Urea Nitrogen) 40 mg/dL (8.4-25.7); Bilirubin, Total 1.2 mg/dL (0.2-1.2); Calc. Creatinine Clearance 0 mL/min (70-130); Carbon Dioxide 23 mmol/L (23-31); Chloride 98 mmol/L (98-107); Estimated GFR 43; Globulin 4.1 g/dL (2.4-3.5); Glucose 169 mg/dL (83-110); Potassium 5.7 mmol/L (3.5-5.1); Protein, Total 7.8 g/dL (5.8-8.1); Sodium 134 mmol/L (136-145)
[2022-03-03 13:47] LABS: CKMB 1.5 ng/mL (0-6.6)
[2022-03-03] MEDS ORDERED: Cefepime 2 GM VIAL ONE (14:29)
[2022-03-03] MEDS ORDERED: Aspirin Chewable 81 MG TAB ONE (14:29)
[2022-03-03] MEDS ORDERED: Vancomycin 1 GM/200 ML BAG ONE ×2 (14:55→14:57)
[2022-03-03 14:58] LABS: Bilirubin Negative (Negative); Blood, Urine Negative (Negative); Clarity Clear (Clear); Glucose, Urine (Dipstick) Normal (Negative); Ketone, Urine Negative (Negative); Leukocyte Negative Leu/uL (Negative); Nitrite Negative (Negative); Protein, Urine (Dipstick) 20 mg/dL (Neg-Trace); Specific Gravity, Urine 1.021 (1.002-1.036); Urobilinogen Normal mg/dL (Less than 2); pH, Urine 5.5 (5.0-9.0)
[2022-03-03 15:15] LABS: SARS-CoV-2 NAA Rapid Test Not Detected (NotDetected)
[2022-03-03 16:05] LABS: Troponin I 0.114 ng/mL (< 0.028)
[2022-03-03 16:33] LABS: Lactic Acid 3.7 mmol/L (0.5-2.2)
[2022-03-03 19:44] LABS: Troponin I 0.106 ng/mL (< 0.028)
[2022-03-03] MEDS ORDERED: Ondansetron PF 4 MG/2 ML Vial IVP PRN (20:49)
[2022-03-03] MEDS ORDERED: Dextrose 50% Abboject 50 ML SYRINGE IVP PRN (21:00)
[2022-03-03] MEDS ORDERED: Dextrose 5% in Water 1,000 ML IV PRN (21:00)
[2022-03-03] MEDS: Apixaban 5 MG TAB PO SCH (22:29)
[2022-03-03] MEDS: Gabapentin 300 MG CAP PO SCH (22:29)
[2022-03-03] MEDS: Megestrol Acetate 40 MG TAB PO SCH (22:29)
[2022-03-03] MEDS: Acetaminophen 325 MG TAB PO PRN (22:30)
[2022-03-03] MEDS: Sodium Chloride 0.9% 1,000 ML IV SCH (22:30)
[2022-03-03] MEDS: Icosapent Ethyl 1 GM CAPSULE PO SCH (23:06)
[2022-03-03 23:27] VITALS: BMI 19.4
[2022-03-04] MEDS: Cefepime 2 GM in Sodium Chloride 0.9% 100 ML IVPB SCH ×2 (02:11→15:01)
[2022-03-04] MEDS: Sodium Chloride 0.9% 1,000 ML IV SCH ×3 (04:28→17:40)
[2022-03-04] MEDS: Levothyroxine Sodium 25 MCG TAB PO SCH (06:25)
[2022-03-04] MEDS: Levothyroxine Sodium 112 MCG TAB PO SCH (06:25)
[2022-03-04 06:43] LABS: Lactic Acid 1.5 mmol/L (0.5-2.2)
[2022-03-04 06:49] LABS: Anion Gap 13 mmol/L (10-20); BUN (Urea Nitrogen) 33 mg/dL (8.4-25.7); Calc. Creatinine Clearance 60 mL/min (70-130); Calcium 8.9 mg/dL (7.8-10.44); Carbon Dioxide 20 mmol/L (23-31); Cardiac Risk 2.6 (Less than 4.5); Chloride 108 mmol/L (98-107); Cholesterol 63 mg/dl (< 200 Desired); Estimated GFR 81; Glucose 61 mg/dL (83-110); HDL Cholesterol 24 mg/dL (>60 Neg Risk); LDL Cholesterol, Calculated 30 mg/dL; Potassium 4.2 mmol/L (3.5-5.1); Sodium 137 mmol/L (136-145); Triglycerides 45 mg/dL (Less than 150)
[2022-03-04 07:44] LABS: Band 46 % (5-11); Helmet Cells SLIGHT = 2-5 cells (100X) (0-1/hpf); Hemoglobin 10.2 g/dL (14.0-18.0); Hypochromia SLIGHT = 6-15 cells (100X) (0-5/hpf); Lymphocytes 1 % (21-51); MDiff Complete? YES; Macrocytosis SLIGHT = 6-15 cells (100X) (0-5/hpf); Mean Corpuscular HGB CONC 31.2 g/dL (32.0-36.0); Mean Corpuscular Hemoglobin 32.1 pg (27.0-31.0); Mean Platelet Volume 7.9 fL (7.4-10.4); Monocytes 2 % (0-10); Neutrophil 51 % (42-75); Platelet Count 204 thou/uL (130-400); Platelet Morphology Comment Appears Adequate; Polychromasia SLIGHT = 2-3 cells (100X) (0-2/hpf); RBC Distribution Width 15.4 % (11.5-14.5); Red Blood Cell (RBC) Count 3.19 mill/uL (4.70-6.10); Schistocytes SLIGHT = 2-5 cells (100X) (0-1/hpf); Tear Drops SLIGHT = 2-5 cells (100X) (0-1/hpf); White Blood Cell (WBC) Count 19.2 thou/uL (4.8-10.8)
[2022-03-04] MEDS: Digoxin 0.25 MG TAB PO SCH (08:37)
[2022-03-04] MEDS: Apixaban 5 MG TAB PO SCH ×2 (08:37→19:59)
[2022-03-04] MEDS: Megestrol Acetate 40 MG TAB PO SCH ×2 (08:37→20:00)
[2022-03-04] MEDS: Aspirin Chewable 81 MG TAB PO SCH (08:38)
[2022-03-04] MEDS: Icosapent Ethyl 1 GM CAPSULE PO SCH ×2 (08:38→19:59)
[2022-03-04] MEDS: Ezetimibe 10 MG TAB PO SCH (08:38)
[2022-03-04] MEDS: Insulin Regular 300 UNITS/3 ML VIAL SC PRN ×3 (12:41→21:52)
[2022-03-04] MEDS: Gabapentin 300 MG CAP PO SCH (19:59)
[2022-03-04] MEDS: Acetaminophen 325 MG TAB PO PRN (20:00)
[2022-03-05] MEDS: Sodium Chloride 0.9% 1,000 ML IV SCH ×4 (00:53→17:20)
[2022-03-05] MEDS: Cefepime 2 GM in Sodium Chloride 0.9% 100 ML IVPB SCH (02:02)
[2022-03-05] MEDS: Acetaminophen 325 MG TAB PO PRN ×2 (02:05→22:03)
[2022-03-05] MEDS: Levothyroxine Sodium 25 MCG TAB PO SCH (06:05)
[2022-03-05] MEDS: Levothyroxine Sodium 112 MCG TAB PO SCH (06:06)
[2022-03-05] MEDS: Insulin Regular 300 UNITS/3 ML VIAL SC PRN ×3 (06:12→17:15)
[2022-03-05 06:49] LABS: #Basophils 0.1 thou/uL (0.0-0.2); #Eosinphils 0.1 thou/uL (0.0-0.7); #Lymphocytes 1.1 thou/uL (1.20-3.40); #Monocytes 0.5 thou/uL (0.11-0.59); %Basophils 0.4 % (0.0-1.0); %Eosinophils 1.1 % (0.0-10.0); %Lymphocytes 8.6 % (21.0-51.0); %Monocytes 3.6 % (0.0-10.0); %Neutrophils 86.3 % (42.0-75.0); Mean Corpuscular HGB CONC 31.8 g/dL (32.0-36.0); Mean Corpuscular Hemoglobin 32.3 pg (27.0-31.0); Mean Platelet Volume 8.4 fL (7.4-10.4); Platelet Count 200 thou/uL (130-400); RBC Distribution Width 15.2 % (11.5-14.5); Red Blood Cell (RBC) Count 3.39 mill/uL (4.70-6.10); White Blood Cell (WBC) Count 12.8 thou/uL (4.8-10.8)
[2022-03-05 07:13] LABS: Anion Gap 11 mmol/L (10-20); BUN (Urea Nitrogen) 28 mg/dL (8.4-25.7); Calc. Creatinine Clearance 56 mL/min (70-130); Calcium 8.9 mg/dL (7.8-10.44); Carbon Dioxide 20 mmol/L (23-31); Chloride 107 mmol/L (98-107); Estimated GFR 74; Glucose 166 mg/dL (83-110); Potassium 4.1 mmol/L (3.5-5.1); Sodium 134 mmol/L (136-145)
[2022-03-05] MEDS: Digoxin 0.25 MG TAB PO SCH (08:18)
[2022-03-05] MEDS: Icosapent Ethyl 1 GM CAPSULE PO SCH ×2 (08:18→20:38)
[2022-03-05] MEDS: Megestrol Acetate 40 MG TAB PO SCH ×2 (08:18→20:39)
[2022-03-05] MEDS: Aspirin Chewable 81 MG TAB PO SCH (08:19)
[2022-03-05] MEDS: Apixaban 5 MG TAB PO SCH ×2 (08:19→20:38)
[2022-03-05] MEDS: Ezetimibe 10 MG TAB PO SCH (08:19)
[2022-03-05] MEDS: Gabapentin 300 MG CAP PO SCH (20:38)
[2022-03-06] MEDS: Sodium Chloride 0.9% 1,000 ML IV SCH ×2 (04:08→09:00)
[2022-03-06 06:14] LABS: #Eosinphils 0.1 thou/uL (0.0-0.7); #Monocytes 0.4 thou/uL (0.11-0.59); #Neutrophils 4.4 thou/uL (1.40-6.50); %Basophils 0.2 % (0.0-1.0); %Eosinophils 1.8 % (0.0-10.0); %Lymphocytes 17.1 % (21.0-51.0); Hemoglobin 10.4 g/dL (14.0-18.0); Mean Corpuscular HGB CONC 32.2 g/dL (32.0-36.0); Mean Corpuscular Hemoglobin 31.9 pg (27.0-31.0); Mean Corpuscular Volume 99.3 fL (78.0-98.0); Mean Platelet Volume 8.3 fL (7.4-10.4); Platelet Count 181 thou/uL (130-400); Red Blood Cell (RBC) Count 3.26 mill/uL (4.70-6.10); White Blood Cell (WBC) Count 5.9 thou/uL (4.8-10.8)
[2022-03-06] MEDS: Levothyroxine Sodium 112 MCG TAB PO SCH (06:29)
[2022-03-06] MEDS: Levothyroxine Sodium 25 MCG TAB PO SCH (06:29)
[2022-03-06 06:36] LABS: Anion Gap 11 mmol/L (10-20); BUN (Urea Nitrogen) 20 mg/dL (8.4-25.7); Calc. Creatinine Clearance 61 mL/min (70-130); Carbon Dioxide 21 mmol/L (23-31); Chloride 108 mmol/L (98-107); Potassium 3.9 mmol/L (3.5-5.1); Sodium 136 mmol/L (136-145)
[2022-03-06 06:37] LABS: Calcium 9.1 mg/dL (7.8-10.44); Estimated GFR 83; Glucose 201 mg/dL (83-110)
[2022-03-06] MEDS: Icosapent Ethyl 1 GM CAPSULE PO SCH (08:59)
[2022-03-06] MEDS: Megestrol Acetate 40 MG TAB PO SCH (08:59)
[2022-03-06] MEDS: Ezetimibe 10 MG TAB PO SCH (08:59)
[2022-03-06] MEDS: Digoxin 0.25 MG TAB PO SCH (08:59)
[2022-03-06] MEDS: Aspirin Chewable 81 MG TAB PO SCH (08:59)
[2022-03-06] MEDS: Apixaban 5 MG TAB PO SCH (09:00)
[2022-03-06 12:00] VITALS: BP 123/54; TEMP 98.1
== END 2022-03-06 13:38 | disposition home or self-care (01) | DRG 871 ==
LOC: ERS 11:50 → ERHOLD 15:15 → 2SW 20:12 → T4-A 21:57
PROVIDERS: ADMIT Specialist; ATTEND Specialist
DX: A41.51 Sepsis due to Escherichia coli [E. coli] (principal); R65.21 Severe sepsis with septic shock; D84.821 Immunodeficiency due to drugs; C25.9 Malignant neoplasm of pancreas, unspecified; Z20.822 Contact with and (suspected) exposure to COVID-19; A41.59 Other Gram-negative sepsis; T45.1X5A Adverse effect of antineoplastic and immunosuppressive drugs, initial encounter; I48.91 Unspecified atrial fibrillation; E78.5 Hyperlipidemia, unspecified; E10.9 Type 1 diabetes mellitus without complications; K21.9 Gastro-esophageal reflux disease without esophagitis; Z79.01 Long term (current) use of anticoagulants; Z95.1 Presence of aortocoronary bypass graft; Z90.49 Acquired absence of other specified parts of digestive tract; Z90.09 Acquired absence of other part of head and neck; Z79.899 Other long term (current) drug therapy; Z79.82 Long term (current) use of aspirin; Z79.4 Long term (current) use of insulin
CPT/HCPCS: 36415; 36416; 71045; 80048; 80053; 80061; 80162; 81003; 82553; 82805; 83036; 83605; 84443; 84484; 85025; 85610; 85730; 87040; 87077; 87149; 87186; 93005; J0692; J1815; J3370; J3490; J7050; S0179; U0002

== ENCOUNTER 2022-03-12 09:00 | Outpatient (CLI) | payer MEDICARE | END 2022-03-12 09:01 | disposition home or self-care (01) | LOC: BICRAD 09:00 | PROVIDERS: ATTEND Specialist | DX: M48.54XD Collapsed vertebra, not elsewhere classified, thoracic region, subsequent encounter for fracture with routine healing (principal) | CPT/HCPCS: 72072 ==

== ENCOUNTER 2022-03-29 15:34 | Emergency (ER) | payer MEDICARE ==
[2022-03-29 16:27] LABS: #Eosinphils 0.1 thou/uL (0.0-0.7); #Lymphocytes 0.6 thou/uL (1.20-3.40); #Monocytes 0.7 thou/uL (0.11-0.59); #Neutrophils 6.8 thou/uL (1.40-6.50); %Basophils 0.2 % (0.0-1.0); %Eosinophils 0.9 % (0.0-10.0); %Monocytes 8.1 % (0.0-10.0); %Neutrophils 83.8 % (42.0-75.0); Hemoglobin 11.7 g/dL (14.0-18.0); Mean Corpuscular HGB CONC 33.1 g/dL (32.0-36.0); Mean Corpuscular Hemoglobin 33.2 pg (27.0-31.0); Mean Platelet Volume 7.4 fL (7.4-10.4); Platelet Count 210 thou/uL (130-400); RBC Distribution Width 17.2 % (11.5-14.5); Red Blood Cell (RBC) Count 3.53 mill/uL (4.70-6.10); White Blood Cell (WBC) Count 8.2 thou/uL (4.8-10.8)
[2022-03-29 16:48] LABS: ALT (SGPT) 23 U/L (8-55); AST (SGOT) 30 U/L (5-34); Albumin 3.5 g/dL (3.4-4.8); Alkaline Phosphatase 224 U/L (40-110); Anion Gap 12 mmol/L (10-20); BUN (Urea Nitrogen) 27 mg/dL (8.4-25.7); Bilirubin, Total 0.6 mg/dL (0.2-1.2); Calc. Creatinine Clearance 0 mL/min (70-130); Calcium 9.3 mg/dL (7.8-10.44); Carbon Dioxide 25 mmol/L (23-31); Chloride 104 mmol/L (98-107); Estimated GFR 54; Globulin 3.8 g/dL (2.4-3.5); Glucose 127 mg/dL (83-110); Potassium 4.4 mmol/L (3.5-5.1); Protein, Total 7.3 g/dL (5.8-8.1); Sodium 137 mmol/L (136-145)
[2022-03-29 18:39] LABS: SARS-CoV-2 NAA Rapid Test Not Detected (NotDetected)
[2022-03-29 19:25] LABS: Bacteria/HPF None Seen HPF (None Seen); Bilirubin Negative (Negative); Blood, Urine 2+ (Negative); Clarity Clear (Clear); Glucose, Urine (Dipstick) Normal (Negative); Ketone, Urine Negative (Negative); Leukocyte Negative Leu/uL (Negative); Nitrite Negative (Negative); Protein, Urine (Dipstick) Negative (Neg-Trace); Specific Gravity, Urine 1.018 (1.002-1.036); Squamous Epithelial 0-3 HPF (0-3); Urobilinogen Normal mg/dL (Less than 2); WBC/HPF 0-3 HPF (0-3); pH, Urine 5.5 (5.0-9.0)
== END 2022-03-29 20:56 | disposition home or self-care (01) ==
LOC: ERS 15:34
DX: R50.9 Fever, unspecified (principal); Z20.822 Contact with and (suspected) exposure to COVID-19; K21.9 Gastro-esophageal reflux disease without esophagitis; E78.5 Hyperlipidemia, unspecified; E10.9 Type 1 diabetes mellitus without complications
CPT/HCPCS: 0240U; 70450; 71045; 80053; 82962; 83605; 85025; 87040; 87077; 87149 ×2; 87186; 36415; 36416; 81003; 81015

== ENCOUNTER 2022-04-05 12:20 | Emergency (ER) | payer MEDICARE ==
[2022-04-05 13:28] LABS: #Eosinphils 0.1 thou/uL (0.0-0.7); #Lymphocytes 0.2 thou/uL (1.20-3.40); #Monocytes 0.1 thou/uL (0.11-0.59); #Neutrophils 5.3 thou/uL (1.40-6.50); %Basophils 0.2 % (0.0-1.0); %Eosinophils 0.9 % (0.0-10.0); %Lymphocytes 4.1 % (21.0-51.0); %Monocytes 2.5 % (0.0-10.0); %Neutrophils 92.2 % (42.0-75.0); Hemoglobin 10.9 g/dL (14.0-18.0); Mean Corpuscular HGB CONC 32.9 g/dL (32.0-36.0); Mean Corpuscular Hemoglobin 32.9 pg (27.0-31.0); Mean Platelet Volume 7.5 fL (7.4-10.4); Platelet Count 188 thou/uL (130-400); RBC Distribution Width 16.5 % (11.5-14.5); Red Blood Cell (RBC) Count 3.33 mill/uL (4.70-6.10); White Blood Cell (WBC) Count 5.7 thou/uL (4.8-10.8)
[2022-04-05 13:47] LABS: ALT (SGPT) 21 U/L (8-55); AST (SGOT) 25 U/L (5-34); Albumin 3.5 g/dL (3.4-4.8); Alkaline Phosphatase 212 U/L (40-110); Anion Gap 12 mmol/L (10-20); BUN (Urea Nitrogen) 25 mg/dL (8.4-25.7); Bilirubin, Total 0.7 mg/dL (0.2-1.2); Calc. Creatinine Clearance 0 mL/min (70-130); Calcium 9.5 mg/dL (7.8-10.44); Carbon Dioxide 28 mmol/L (23-31); Chloride 99 mmol/L (98-107); Estimated GFR 58; Globulin 3.5 g/dL (2.4-3.5); Glucose 125 mg/dL (83-110); Potassium 4.2 mmol/L (3.5-5.1); Sodium 135 mmol/L (136-145)
[2022-04-05 14:30] LABS: SARS-CoV-2 NAA Rapid Test Not Detected (NotDetected)
[2022-04-05 14:59] LABS: Bilirubin Negative (Negative); Blood, Urine Negative (Negative); Clarity Clear (Clear); Glucose, Urine (Dipstick) Normal (Negative); Ketone, Urine Negative (Negative); Leukocyte Negative Leu/uL (Negative); Nitrite Negative (Negative); Protein, Urine (Dipstick) Negative (Neg-Trace); Specific Gravity, Urine 1.015 (1.002-1.036); Urobilinogen Normal mg/dL (Less than 2); pH, Urine 6.5 (5.0-9.0)
== END 2022-04-05 15:00 | disposition home or self-care (01) ==
LOC: ERS 12:20
DX: B34.9 Viral infection, unspecified (principal); Z20.822 Contact with and (suspected) exposure to COVID-19; I48.91 Unspecified atrial fibrillation; E10.9 Type 1 diabetes mellitus without complications; K21.9 Gastro-esophageal reflux disease without esophagitis; E78.5 Hyperlipidemia, unspecified; Z79.01 Long term (current) use of anticoagulants
CPT/HCPCS: 71045; 71275; 80053; 81003; 83605; 85025; 87040; 87077; 87149 ×2; 87186; 99284; U0002; 36415; Q9967

== ENCOUNTER 2022-04-09 16:08 | Emergency (ER) | payer MEDICARE | END 2022-04-09 19:15 | disposition home or self-care (01) | LOC: ERS 16:08 | DX: R78.81 Bacteremia (principal); E78.5 Hyperlipidemia, unspecified; I48.91 Unspecified atrial fibrillation; E10.9 Type 1 diabetes mellitus without complications; K21.9 Gastro-esophageal reflux disease without esophagitis | CPT/HCPCS: 99283 ==

== ENCOUNTER 2022-06-28 08:34 | Outpatient (CLI) | payer MEDICARE ==
[2022-06-28] MEDS ORDERED: Iopamidol 370 76% 100 ML VIAL ONE (12:14)
== END 2022-06-28 08:35 | disposition home or self-care (01) ==
LOC: CT 08:34
PROVIDERS: ATTEND Internal Medicine Hematology & Oncology
DX: C25.0 Malignant neoplasm of head of pancreas (principal); C44.321 Squamous cell carcinoma of skin of nose; J98.4 Other disorders of lung; N28.1 Cyst of kidney, acquired; I70.0 Atherosclerosis of aorta; M48.54XA Collapsed vertebra, not elsewhere classified, thoracic region, initial encounter for fracture; Z98.890 Other specified postprocedural states
CPT/HCPCS: 71260; 74177; 82565; Q9967

== ENCOUNTER 2022-09-28 08:32 | Emergency (ER) | payer MEDICARE ==
[2022-09-28] MEDS ORDERED: Boostrix 0.5 ML (Tdap) VIAL (>/=7 yrs of age) ONE (09:07)
[2022-09-28] MEDS ORDERED: HYDROcodone/Acetaminophen 5/325 mg Tablet ONE (09:46)
== END 2022-09-28 10:20 | disposition home or self-care (01) ==
LOC: ERS 08:32 → EDBD 08:32 → ERS 10:20
DX: S51.012A Laceration without foreign body of left elbow, initial encounter (principal); M25.562 Pain in left knee; M25.512 Pain in left shoulder; E10.9 Type 1 diabetes mellitus without complications; K21.9 Gastro-esophageal reflux disease without esophagitis; E78.5 Hyperlipidemia, unspecified; W19.XXXA Unspecified fall, initial encounter; Z79.82 Long term (current) use of aspirin; Z79.01 Long term (current) use of anticoagulants
CPT/HCPCS: 70450; 72170; 90471; 90715

== ENCOUNTER 2022-12-28 08:49 | Outpatient (CLI) | payer MEDICARE ==
[~2022-12-28 08:49] MED LIST changes: +Iopamidol 370 76% 100 ML VIAL ONE; -Iopamidol-370 76% 500 ML 1 ML ONE
== END 2022-12-28 08:50 | disposition home or self-care (01) ==
LOC: CT 08:49
PROVIDERS: ATTEND Internal Medicine Hematology & Oncology
DX: C25.0 Malignant neoplasm of head of pancreas (principal); C76.0 Malignant neoplasm of head, face and neck
CPT/HCPCS: 71260; 74177; 82565

== ENCOUNTER 2023-07-12 07:59 | Outpatient (CLI) | payer MEDICARE ==
[2023-07-12] MEDS ORDERED: Iopamidol 370 76% 100 ML VIAL ONE (11:35)
== END 2023-07-12 08:00 | disposition home or self-care (01) ==
LOC: BICCT 07:59
PROVIDERS: ATTEND Internal Medicine Hematology & Oncology
DX: C25.0 Malignant neoplasm of head of pancreas (principal); C76.0 Malignant neoplasm of head, face and neck; K83.8 Other specified diseases of biliary tract; R91.1 Solitary pulmonary nodule
CPT/HCPCS: 71260; 74177; 82565

== ENCOUNTER 2023-10-03 10:40 | Outpatient (CLI) | payer MEDICARE | END 2023-10-03 10:41 | disposition home or self-care (01) | LOC: BICRAD 10:40 | PROVIDERS: ATTEND Specialist | DX: M54.2 Cervicalgia (principal); M54.6 Pain in thoracic spine; M47.812 Spondylosis without myelopathy or radiculopathy, cervical region; M43.9 Deforming dorsopathy, unspecified | CPT/HCPCS: 72040; 72070 ==

== ENCOUNTER 2024-01-27 10:31 | Inpatient (IN) | payer MEDICARE ==
[2024-01-27 11:10] LABS: #Basophils 0.04 10x3/uL (0.0-0.2); %Basophils 0.4 % (0.0-1.0); %Eosinophils 0.6 % (0.0-10.0); %Lymphocytes 6.7 % (21.0-51.0); %Monocytes 9.7 % (0.0-10.0); Hemoglobin 12.1 g/dL (14.0-18.0); Mean Corpuscular HGB CONC 32.7 g/dL (32.0-36.0); Mean Corpuscular Hemoglobin 33.2 pg (27.0-31.0); Mean Corpuscular Volume 101.6 fL (78.0-98.0); Mean Platelet Volume 9.4 fL (7.4-10.4); Platelet Count 167 10x3/uL (130-400); RBC Distribution Width 15.7 % (11.5-14.5); Red Blood Cell (RBC) Count 3.64 mill/uL (4.70-6.10)
[2024-01-27 11:22] LABS: ALT (SGPT) 41 U/L (8-55); AST (SGOT) 44 U/L (5-34); Alkaline Phosphatase 90 U/L (40-110); Anion Gap 14 mmol/L (10-20); BUN (Urea Nitrogen) 24 mg/dL (8.4-25.7); Calc. Creatinine Clearance 0 mL/min (70-130); Calcium 8.9 mg/dL (7.8-10.44); Carbon Dioxide 20 mmol/L (23-31); Chloride 107 mmol/L (98-107); Estimated GFR 69; Globulin 3.2 g/dL (2.4-3.5); Glucose 147 mg/dL (83-110); Lipase 5 U/L (8-78); Potassium 3.8 mmol/L (3.5-5.1); Protein, Total 6.2 g/dL (5.8-8.1); Sodium 137 mmol/L (136-145)
[2024-01-27 12:55] LABS: Bacteria/HPF None Seen HPF (None Seen); Bilirubin Negative (Negative); Blood, Urine Negative (Negative); CAUTI Indications for Culture Alt mental st,lethar; Clarity Clear (Clear); Glucose, Urine (Dipstick) Normal (Negative); Ketone, Urine Negative (Negative); Leukocyte Negative Leu/uL (Negative); Nitrite Negative (Negative); Protein, Urine (Dipstick) Negative (Neg-Trace); RBC/HPF 0-3 HPF (0-3); Specific Gravity, Urine 1.018 (1.002-1.036); Squamous Epithelial 0-3 HPF (0-3); Urobilinogen Normal mg/dL (Less than 2); WBC/HPF 0-3 HPF (0-3); pH, Urine 6.5 (5.0-9.0)
[2024-01-27 12:57] LABS: Urine Culture Reflex No No
[2024-01-27 14:08] LABS: Lactic Acid 1.8 mmol/L (0.5-2.2)
[2024-01-27] MEDS ORDERED: cefTRIAXone (ROCEPHIN) 2 GM VIAL ONE (14:12)
[2024-01-27] MEDS ORDERED: Sodium Chloride 0.9% 100 ML ONE (14:12)
[2024-01-27 14:13] LABS: Digoxin 1.41 ng/mL (0.8-2.0)
[2024-01-27] MEDS ORDERED: Ondansetron PF 4 MG/2 ML Vial IVP PRN (14:45)
[2024-01-27] MEDS ORDERED: Acetaminophen 325 MG TAB PO PRN (14:45)
[2024-01-27] MEDS ORDERED: Ondansetron ODT 4 MG TAB SL PRN (14:45)
[2024-01-27 15:23] LABS: Troponin I 0.147 ng/mL (< 0.028)
[2024-01-27] MEDS ORDERED: Bisacodyl 5 MG TAB PO PRN (16:19)
[2024-01-27] MEDS ORDERED: Senokot S 8.6-50 MG TAB PO PRN (16:19)
[2024-01-27] MEDS ORDERED: Dextrose 5% in Water 1,000 ML IV PRN (16:23)
[2024-01-27] MEDS ORDERED: Glucagon 1 MG/ML KIT IM PRN (16:23)
[2024-01-27] MEDS ORDERED: Dextrose 50% Abboject 50 ML SYRINGE SLOW IVP PRN (16:23)
[2024-01-27] MEDS: Sodium Chloride 0.9% 1,000 ML IV SCH (18:17)
[2024-01-27] MEDS: Insulin Regular, Human 100 UNIT/ML 10 ML VIAL SC PRN ×2 (18:18→21:10)
[2024-01-27 18:54] LABS: Troponin I 0.149 ng/mL (< 0.028)
[2024-01-27] MEDS: Megestrol Acetate 40 MG TAB PO SCH (21:08)
[2024-01-27] MEDS: Apixaban 5 MG TAB PO SCH (21:08)
[2024-01-27] MEDS: Digoxin 0.25 MG TAB PO SCH (21:08)
[2024-01-28 05:32] LABS: #Basophils Less than 0.03 10x3/uL (0.0-0.2); %Basophils 0.3 % (0.0-1.0); %Eosinophils 1.9 % (0.0-10.0); %Lymphocytes 13.8 % (21.0-51.0); %Monocytes 10.8 % (0.0-10.0); %Neutrophils 72.9 % (42.0-75.0); Hematocrit 36.1 % (42.0-52.0); Mean Corpuscular HGB CONC 33.2 g/dL (32.0-36.0); Mean Corpuscular Hemoglobin 32.7 pg (27.0-31.0); Mean Corpuscular Volume 98.4 fL (78.0-98.0); Mean Platelet Volume 10.1 fL (7.4-10.4); Platelet Count 171 10x3/uL (130-400); RBC Distribution Width 15.4 % (11.5-14.5); Red Blood Cell (RBC) Count 3.67 mill/uL (4.70-6.10)
[2024-01-28 05:49] LABS: Anion Gap 14 mmol/L (10-20); BUN (Urea Nitrogen) 17 mg/dL (8.4-25.7); Calc. Creatinine Clearance 61 mL/min (70-130); Calcium 9.1 mg/dL (7.8-10.44); Carbon Dioxide 22 mmol/L (23-31); Chloride 105 mmol/L (98-107); Estimated GFR 69; Glucose 202 mg/dL (83-110); Potassium 3.8 mmol/L (3.5-5.1); Sodium 137 mmol/L (136-145)
[2024-01-28] MEDS: Levothyroxine Sodium 112 MCG TAB PO SCH (05:58)
[2024-01-28] MEDS: Levothyroxine Sodium 25 MCG TAB PO SCH (05:59)
[2024-01-28] MEDS ORDERED: Non-Formulary Item 1 EACH (Levothyroxine Sodium [Levothyroxine Sodium] 137 MCG Capsule) PO SCH (09:00)
[2024-01-28] MEDS: Insulin Glargine 30 UNITS/0.3 ML VIAL SC SCH (09:49)
[2024-01-28] MEDS: Megestrol Acetate 40 MG TAB PO SCH (09:58)
[2024-01-28 12:41] VITALS: BMI 23.7
[2024-01-29 03:40] LABS: #Basophils Less than 0.03 10x3/uL (0.0-0.2); %Basophils 0.4 % (0.0-1.0); %Eosinophils 2.6 % (0.0-10.0); %Lymphocytes 14.6 % (21.0-51.0); %Monocytes 9.8 % (0.0-10.0); %Neutrophils 72.4 % (42.0-75.0); Hematocrit 34.7 % (42.0-52.0); Hemoglobin 11.9 g/dL (14.0-18.0); Mean Corpuscular HGB CONC 34.3 g/dL (32.0-36.0); Mean Corpuscular Hemoglobin 33.2 pg (27.0-31.0); Mean Corpuscular Volume 96.9 fL (78.0-98.0); Mean Platelet Volume 9.2 fL (7.4-10.4); Platelet Count 157 10x3/uL (130-400); RBC Distribution Width 15.1 % (11.5-14.5); Red Blood Cell (RBC) Count 3.58 mill/uL (4.70-6.10)
[2024-01-29 03:56] LABS: Anion Gap 12 mmol/L (10-20); BUN (Urea Nitrogen) 14 mg/dL (8.4-25.7); Calc. Creatinine Clearance 79 mL/min (70-130); Calcium 8.9 mg/dL (7.8-10.44); Carbon Dioxide 22 mmol/L (23-31); Chloride 106 mmol/L (98-107); Estimated GFR 87; Glucose 248 mg/dL (83-110); Potassium 3.8 mmol/L (3.5-5.1); Sodium 136 mmol/L (136-145)
[2024-01-29] MEDS ORDERED: Senokot S 8.6-50 MG TAB PO PRN (13:09)
[2024-01-29] MEDS: Gabapentin 300 MG CAP PO SCH (20:53)
[2024-01-29] MEDS: Ezetimibe 10 MG TAB PO SCH (20:53)
[2024-01-30 06:18] LABS: #Basophils Less than 0.03 10x3/uL (0.0-0.2); %Basophils 0.2 % (0.0-1.0); %Eosinophils 3.6 % (0.0-10.0); %Lymphocytes 18.6 % (21.0-51.0); %Monocytes 9.3 % (0.0-10.0); %Neutrophils 67.8 % (42.0-75.0); Hematocrit 34.5 % (42.0-52.0); Hemoglobin 11.8 g/dL (14.0-18.0); Mean Corpuscular HGB CONC 34.2 g/dL (32.0-36.0); Mean Corpuscular Hemoglobin 33.7 pg (27.0-31.0); Mean Corpuscular Volume 98.6 fL (78.0-98.0); Platelet Count 180 10x3/uL (130-400); RBC Distribution Width 14.9 % (11.5-14.5)
[2024-01-30 06:39] LABS: Anion Gap 11 mmol/L (10-20); BUN (Urea Nitrogen) 15 mg/dL (8.4-25.7); Calc. Creatinine Clearance 77 mL/min (70-130); Calcium 8.8 mg/dL (7.8-10.44); Carbon Dioxide 21 mmol/L (23-31); Chloride 109 mmol/L (98-107); Estimated GFR 87; Glucose 249 mg/dL (83-110); Potassium 3.9 mmol/L (3.5-5.1); Sodium 137 mmol/L (136-145)
[2024-01-30] MEDS: Cholecalciferol 1,000 UNITS (25 MCG) TAB PO SCH (09:06)
[2024-01-30] MEDS: Aspirin Chewable 81 MG TAB PO SCH (09:06)
[2024-01-30] MEDS: Vit A,C & E/Lutein/Minerals Tablet PO SCH (09:06)
[2024-01-30] MEDS: HumaLOG 300 UNITS/3 ML VIAL SC SCH (12:28)
[2024-01-31 03:56] LABS: #Basophils 0.03 10x3/uL (0.0-0.2); %Basophils 0.7 % (0.0-1.0); %Eosinophils 4.8 % (0.0-10.0); %Monocytes 9.4 % (0.0-10.0); %Neutrophils 63.9 % (42.0-75.0); Hemoglobin 12.3 g/dL (14.0-18.0); Mean Corpuscular HGB CONC 33.2 g/dL (32.0-36.0); Mean Corpuscular Hemoglobin 32.5 pg (27.0-31.0); Mean Corpuscular Volume 97.6 fL (78.0-98.0); Mean Platelet Volume 9.7 fL (7.4-10.4); Platelet Count 182 10x3/uL (130-400); RBC Distribution Width 14.8 % (11.5-14.5); Red Blood Cell (RBC) Count 3.79 mill/uL (4.70-6.10)
[2024-01-31 04:11] LABS: Anion Gap 11 mmol/L (10-20); BUN (Urea Nitrogen) 16 mg/dL (8.4-25.7); Calc. Creatinine Clearance 75 mL/min (70-130); Calcium 9.2 mg/dL (7.8-10.44); Carbon Dioxide 22 mmol/L (23-31); Chloride 107 mmol/L (98-107); Estimated GFR 86; Glucose 289 mg/dL (83-110); Sodium 136 mmol/L (136-145)
[2024-01-31] MEDS: Insulin Glargine 30 UNITS/0.3 ML VIAL SC SCH (09:17)
[2024-02-01 04:03] LABS: #Basophils 0.05 10x3/uL (0.0-0.2); %Eosinophils 3.7 % (0.0-10.0); %Monocytes 8.4 % (0.0-10.0); %Neutrophils 63.1 % (42.0-75.0); Hemoglobin 12.7 g/dL (14.0-18.0); Mean Corpuscular HGB CONC 33.4 g/dL (32.0-36.0); Mean Corpuscular Hemoglobin 32.4 pg (27.0-31.0); Mean Corpuscular Volume 96.9 fL (78.0-98.0); Mean Platelet Volume 9.8 fL (7.4-10.4); Platelet Count 196 10x3/uL (130-400); RBC Distribution Width 14.8 % (11.5-14.5); Red Blood Cell (RBC) Count 3.92 mill/uL (4.70-6.10)
[2024-02-01 04:29] LABS: Anion Gap 13 mmol/L (10-20); BUN (Urea Nitrogen) 15 mg/dL (8.4-25.7); Calc. Creatinine Clearance 68 mL/min (70-130); Calcium 9.4 mg/dL (7.8-10.44); Carbon Dioxide 21 mmol/L (23-31); Chloride 104 mmol/L (98-107); Estimated GFR 79; Glucose 297 mg/dL (83-110); Potassium 4.1 mmol/L (3.5-5.1); Sodium 134 mmol/L (136-145)
[2024-02-01 17:01] VITALS: BP 134/66; TEMP 98.1
== END 2024-02-01 17:03 | disposition home health service (06) | DRG 640 ==
LOC: ERS 10:31 → 2SE 16:40 → OBSVTOIN 01-28 12:21 → 2NO 01-31 21:48
PROVIDERS: ADMIT Internal Medicine; ATTEND Hospitalist
DX: E46 Unspecified protein-calorie malnutrition (principal); G93.41 Metabolic encephalopathy; I21.A1 Myocardial infarction type 2; E87.20 Acidosis, unspecified; I48.91 Unspecified atrial fibrillation; K21.9 Gastro-esophageal reflux disease without esophagitis; R53.1 Weakness; I34.0 Nonrheumatic mitral (valve) insufficiency; I45.10 Unspecified right bundle-branch block; F32.A Depression, unspecified; R79.89 Other specified abnormal findings of blood chemistry; W19.XXXA Unspecified fall, initial encounter; Z79.899 Other long term (current) drug therapy; Z79.82 Long term (current) use of aspirin; Z79.4 Long term (current) use of insulin; Z79.890 Hormone replacement therapy; Z85.07 Personal history of malignant neoplasm of pancreas; Z90.49 Acquired absence of other specified parts of digestive tract; Z98.890 Other specified postprocedural states; Z98.41 Cataract extraction status, right eye; Z98.42 Cataract extraction status, left eye; Z68.23 Body mass index [BMI] 23.0-23.9, adult
CPT/HCPCS: 36415; 36416; 70450; 71045; 72125; 80048; 80053; 80162; 81001; 83605; 83690; 84484; 85025; 87040; 93005; 96365; J0696; J1815; J3490; J7050; S0179

== ENCOUNTER 2024-03-20 09:41 | Outpatient (CLI) | payer MEDICARE | END 2024-03-20 09:42 | disposition home or self-care (01) | LOC: BICULT 09:41 | PROVIDERS: ATTEND Specialist | DX: R22.41 Localized swelling, mass and lump, right lower limb (principal) ==

== ENCOUNTER 2024-05-14 09:04 | Emergency (ER) | payer MEDICARE ==
[2024-05-14] MEDS ORDERED: diphenhydrAMINE 25 MG CAP ONE (09:45)
[2024-05-14] MEDS ORDERED: predniSONE 20 MG TAB ONE (09:45)
== END 2024-05-14 09:55 | disposition home or self-care (01) ==
LOC: ERS 09:04
DX: T78.40XA Allergy, unspecified, initial encounter (principal); I48.91 Unspecified atrial fibrillation; E03.9 Hypothyroidism, unspecified; E78.5 Hyperlipidemia, unspecified; E10.9 Type 1 diabetes mellitus without complications; K21.9 Gastro-esophageal reflux disease without esophagitis; Z79.82 Long term (current) use of aspirin; Z79.01 Long term (current) use of anticoagulants; Z79.899 Other long term (current) drug therapy
CPT/HCPCS: 99283; J7512